=== PATIENT | female | born 1980 | race Caucasian/White ===

== ENCOUNTER 2017-07-10 11:22 | Emergency (ER) | payer MEDICAID ==
[2017-02-27 06:11] VITALS: Wt 61.2 kg
[~2017-07-10 11:22] MED LIST: ACET-1966 PO; CEPH500T7 PO; CIPR-344 PO; IBUP800T37 PO; INSU100I35 SUBQ; INSU100I5 SUBQ; NICO1PAT88 TD; OXYC-865 PO; PER PO; PREN-127 PO
[2017-07-10 11:27] VITALS: BP 133/79
--- NOTE | 2017-07-10 11:30 | ER Report ---
History and Physical Time Seen By MD: 11:30 Hx. of Stated Complaint: L lower tooth pain that started last night, unable to get into dentist til next week HPI/ROS CHIEF COMPLAINT: Tooth pain HISTORY OF PRESENT ILLNESS: 36-year-old female patient presents to emergency room with complaint of left-sided tooth pain. Patient states it started last night. She states the pain has become significant. Patient states she tried to eat a bagel this morning, however she was unable to due to the pain. Patient states that she did call and make an appointment with a dentist for next week. She states that the pain is quite significant. She denies having any fevers, chills, nausea, vomiting or diarrhea. Patient states she did take 3 extra strength Tylenol 3 over the last 12 hours. Allergies: Coded Allergies: No Known Drug Allergies (Unverified , 07/10/17) Home Meds Active Scripts Tramadol Hcl (TRAMADOL HCL) 50 Mg Tablet, 50 MG PO Q4-6H Y for PAIN, #10 TAB Prov:EFREN PATRICK 07/10/17 Amoxicillin 500 Mg Tab (AMOXICILLIN 500 MG TAB) 500 Mg Tablet, 1 TAB PO Q8H, # 30 TAB Prov:EFREN PATRICK 07/10/17 Insulin Detemir 100 UN/ML PEN (Levemir Flextouch) 100 Unit/1 Ml Insuln.pen, 15 UNIT SUBQ QHS, #1 UNIT 3 Refills Prov:COBY TRUONG MD 03/20/15 Insulin Aspart 100 Un/Ml Pen (NOVOLOG FLEXPEN) 100 Unit/1 Ml Insuln.pen, 5-10 UNIT SUBQ TIDCF, #1 VIAL 3 Refills Prov:COBY TRUONG MD 03/20/15 Discontinued Reported Medications Nicotine (NICOTINE PATCH) 1 Each Patch.td24, 1 EACH TD 02/27/17 Vits W-Ca,Fe,Fa(<1MG) ( VITAMINS) 1 Each Tablet, 1 EACH PO DAILY, TAB 01/17/17 Discontinued Scripts Oxycodone Hcl/Acetaminophen (PERCOCET 5-325 MG TABLET) 1 Each Tablet, 1-2 TAB PO Q4H Y for pain, #40 TAB 0 Refills Prov:SRAVAN DE LUNA MD 02/28/17 Ibuprofen (IBUPROFEN) 800 Mg Tablet, 1 TAB PO Q8H Y for pain, #40 TAB 0 Refills TAKE WITH FOOD EVERY 8 HOURS Prov:SRAVAN DE LUNA MD 02/28/17 Past Medical/Surgical History Patient has a past medical history of type 1 diabetes. Patient denies any pertinent surgical history. Reviewed Nurses Notes: Yes Hx Smoking: Yes Smoking Status: Current: Every Day Smoker Exposure to Second Hand Smoke?: Yes Constitutional Vital Sign - Last 24 Hours 07/10/17 11:27 Temp 98.1 Pulse 72 Resp 16 B/P (MAP) 133/79 Pulse Ox 96 Physical Exam General appearance: Alert no distress. Respiratory: Chest is non tender, lungs are clear to auscultation. Cardiac: Regular rate and rhythm. ENT: Patient has no obvious cavity to tooth #17, mildly tender to touch. Tooth # 18 is missing. There is no obvious abscess, swelling or erythema. DIFFERENTIAL DIAGNOSIS: After history and physical exam differential diagnosis was considered for toothache, dental infection, abscess. Medical Decision Making ED Course/Re-evaluation ED Course Patient was admitted to examined, history and physical were obtained. Differential diagnoses were considered. On exam tooth #17 was tender to palpation. Tooth #18 was missing. Patient did have enlarged lymph nodes. I discussed my findings with patient. We'll go ahead and start her on amoxicillin , tramadol. Patient was prescribed the tramadol was because of having some much Tylenol in a short. Time. Patient was instructed not to take any more Tylenol. Patient is to follow-up with her dentist as scheduled. She is return to emergency room if condition worsens. I discussed this with the patient who verbalized understanding and agreement with plan. Decision to Disposition Date: Jul 10, 2017 Decision to Disposition Time: 11:39 Depart Departure Latest Vital Signs Vital Signs Date Time Temp Pulse Resp B/P (MAP) Pulse Ox O2 Delivery O2 Flow Rate FiO2 07/10/17 11:27 98.1 72 16 133/79 96 Impression: Primary Impression: Toothache Condition: Improved Disposition: HOME OR SELF-CARE Referrals: COBY TRUONG MD (PCP) New Scripts Tramadol Hcl (TRAMADOL HCL) 50 Mg Tablet 50 MG PO Q4-6H Y for PAIN, #10 TAB Prov: EFREN PATRICK 07/10/17 Amoxicillin 500 Mg Tab (AMOXICILLIN 500 MG TAB) 500 Mg Tablet 1 TAB PO Q8H, #30 TAB Prov: EFREN PATRICK 07/10/17 Patient Instructions: Toothache (ED) Additional Instructions: You may take Ibuoprofen in addition to the pain medication as needed for pain. Rinse mouth with warm salt water after every meal. Eat soft foods. Follow up with your dentist as soon as possible, call to make an appointment. Return to the ER if condition worsens. EFREN PATRICK Jul 10, 2017 11:30
[2017-07-10] MEDS ORDERED: AMOX500T10 PO (11:37)
[2017-07-10] MEDS ORDERED: TRAM-420 PO (11:37)
== END 2017-07-10 11:45 | disposition home or self-care (01) ==
LOC: ER 11:26
DX: K08.89 Other specified disorders of teeth and supporting structures (principal)
CPT/HCPCS: 99282

== ENCOUNTER 2017-08-05 09:47 | Emergency (ER) | payer MEDICAID ==
[2017-02-27 06:11] VITALS: Wt 61.2 kg
[~2017-08-05 09:47] MED LIST changes: +AMOX500T10 PO; +TRAM-420 PO
[2017-08-05 09:52] VITALS: BP 134/79
--- NOTE | 2017-08-05 09:57 | ER Report ---
History and Physical Time Seen By MD: 09:57 Hx. of Stated Complaint: RIGHT KNEE PAIN THAT STARTED YESTERDAY. NO INJURY HPI/ROS CHIEF COMPLAINT: Knee pain HISTORY OF PRESENT ILLNESS: This is a 36 year old female. She had sudden onset of pain in the right knee this morning. No injury. No new activities or overuse. The knee is swollen. No history of prior knee problems. Pain with even light touch or any movement. No numbness in the leg. The knee does feel warm, but no rashes. No fever or chills. No other joint pains. No shortness of breath. No chest pain. No recent illness. Allergies: Coded Allergies: No Known Drug Allergies (Unverified , 08/05/17) Home Meds Active Scripts Hydrocodone Bit/Acetaminophen (HYDROCODON-ACETAMINOPHEN 5-325) 1 Each Tablet, 1 EACH PO Q4H Y for PAIN, #20 TAB 0 Refills Prov:CRISS BISHOP MD 08/05/17 Insulin Detemir 100 UN/ML PEN (Levemir Flextouch) 100 Unit/1 Ml Insuln.pen, 15 UNIT SUBQ QHS, #1 UNIT 3 Refills Prov:COBY TRUONG MD 03/20/15 Insulin Aspart 100 Un/Ml Pen (NOVOLOG FLEXPEN) 100 Unit/1 Ml Insuln.pen, 5-10 UNIT SUBQ TIDCF, #1 VIAL 3 Refills Prov:COBY TRUONG MD 03/20/15 Discontinued Scripts Tramadol Hcl (TRAMADOL HCL) 50 Mg Tablet, 50 MG PO Q4-6H Y for PAIN, #10 TAB Prov:EFREN PATRICK 07/10/17 Amoxicillin 500 Mg Tab (AMOXICILLIN 500 MG TAB) 500 Mg Tablet, 1 TAB PO Q8H, # 30 TAB Prov:EFREN PATRICK 07/10/17 Reviewed Nurses Notes: Yes Hx Smoking: Yes Smoking Status: Current: Every Day Smoker Exposure to Second Hand Smoke?: Yes Constitutional Vital Sign - Last 24 Hours 08/05/17 09:52 Temp 98.5 Pulse 95 Resp 18 B/P (MAP) 134/79 Pulse Ox 95 O2 Delivery Room Air Physical Exam General Appearance: The patient is alert, acute distress due to pain, tearful. Respiratory: No shortness of breath, breathing easily. Cardiac: regular rate and rhythm. Normal pulses in the right leg. Musculoskeletal: Knee has effusion, is very tender to even light touch and any movement. Guarding. Pain is diffuse, seems worse medial side. Skin: No rashes or lesions. Skin is warmer than surrounding skin. DIFFERENTIAL DIAGNOSIS: After history and physical exam differential diagnosis was considered for sudden onset of nontraumatic knee pain. Concern for inflammatory conditions causing pain like this and septic arthritis. Medical Decision Making Data Points Result Diagram: 08/05/17 1045 08/05/17 1045 Laboratory Hematology Test 08/05/17 10:45 08/05/17 11:52 Red Blood Count 4.48 M/uL (4.17-5.56) Mean Corpuscular Volume 88.2 fL (80.0-96.0) Mean Corpuscular Hemoglobin 29.6 pg (26.0-33.0) Mean Corpuscular Hemoglobin Concent 33.6 g/dL (32.0-36.0) Red Cell Distribution Width 13.7 % (11.5-14.5) Mean Platelet Volume 7.1 fL (7.2-11.1) Neutrophils (%) (Auto) 78.2 % (39.4-72.5) Lymphocytes (%) (Auto) 15.0 % (17.6-49.6) Monocytes (%) (Auto) 6.2 % (4.1-12.4) Eosinophils (%) (Auto) 0.0 % (0.4-6.7) Basophils (%) (Auto) 0.6 % (0.3-1.4) Nucleated RBC Relative Count (auto) 0.0 /100WBC Neutrophils # (Auto) 8.6 K/uL (2.0-7.4) Lymphocytes # (Auto) 1.7 K/uL (1.3-3.6) Monocytes # (Auto) 0.7 K/uL (0.3-1.0) Eosinophils # (Auto) 0.0 K/uL (0.0-0.5) Basophils # (Auto) 0.1 K/uL (0.0-0.1) Nucleated RBC Absolute Count (auto) 0.00 K/uL Peripheral Blood Smear No Y/N Erythrocyte Sedimentation Rate 18 mm/HOUR (0-20) Sodium Level 142 mmol/L (137-145) Potassium Level 3.8 mmol/L (3.5-5.0) Chloride Level 105 mmol/L (98-107) Carbon Dioxide Level 26 mmol/L (22-31) Blood Urea Nitrogen 12 mg/dl (7-18) Creatinine 0.60 mg/dl (0.52-1.04) Glomerular Filtration Rate Calc > 60.0 Random Glucose 73 mg/dl (75-110) Uric Acid 2.6 mg/dl (2.5-7.5) Calcium Level 8.9 mg/dl (8.4-10.2) Total Bilirubin 0.7 mg/dl (0.2-1.3) Aspartate Amino Transf (AST/SGOT) 23 U/L (0-35) Alanine Aminotransferase (ALT/SGPT) 24 U/L (0-56) Alkaline Phosphatase 79 U/L (0-126) C-Reactive Protein 5.4 mg/dl (<1.0) Total Protein 7.2 gm/dl (6.3-8.2) Albumin 3.9 g/dl (3.5-5.0) Human Chorionic Gonadotropin, Qual Negative (NEGATIVE) Body Fluid Type . Body Fluid Crystals None seen Chemistry Test 08/05/17 10:45 08/05/17 11:52 White Blood Count 11.0 k/uL (4.5-11.0) Red Blood Count 4.48 M/uL (4.17-5.56) Hemoglobin 13.3 g/dL (12.0-16.0) Hematocrit 39.5 % (34.0-47.0) Mean Corpuscular Volume 88.2 fL (80.0-96.0) Mean Corpuscular Hemoglobin 29.6 pg (26.0-33.0) Mean Corpuscular Hemoglobin Concent 33.6 g/dL (32.0-36.0) Red Cell Distribution Width 13.7 % (11.5-14.5) Platelet Count 360 K/uL (150-450) Mean Platelet Volume 7.1 fL (7.2-11.1) Neutrophils (%) (Auto) 78.2 % (39.4-72.5) Lymphocytes (%) (Auto) 15.0 % (17.6-49.6) Monocytes (%) (Auto) 6.2 % (4.1-12.4) Eosinophils (%) (Auto) 0.0 % (0.4-6.7) Basophils (%) (Auto) 0.6 % (0.3-1.4) Nucleated RBC Relative Count (auto) 0.0 /100WBC Neutrophils # (Auto) 8.6 K/uL (2.0-7.4) Lymphocytes # (Auto) 1.7 K/uL (1.3-3.6) Monocytes # (Auto) 0.7 K/uL (0.3-1.0) Eosinophils # (Auto) 0.0 K/uL (0.0-0.5) Basophils # (Auto) 0.1 K/uL (0.0-0.1) Nucleated RBC Absolute Count (auto) 0.00 K/uL Peripheral Blood Smear No Y/N Erythrocyte Sedimentation Rate 18 mm/HOUR (0-20) Glomerular Filtration Rate Calc > 60.0 Uric Acid 2.6 mg/dl (2.5-7.5) Calcium Level 8.9 mg/dl (8.4-10.2) Total Bilirubin 0.7 mg/dl (0.2-1.3) Aspartate Amino Transf (AST/SGOT) 23 U/L (0-35) Alanine Aminotransferase (ALT/SGPT) 24 U/L (0-56) Alkaline Phosphatase 79 U/L (0-126) C-Reactive Protein 5.4 mg/dl (<1.0) Total Protein 7.2 gm/dl (6.3-8.2) Albumin 3.9 g/dl (3.5-5.0) Human Chorionic Gonadotropin, Qual Negative (NEGATIVE) Body Fluid Type . Body Fluid Crystals None seen Microbiology Microbiology Date/Time Source Procedure Growth Status 08/05/17 11:52 Knee Fluid Right Gram Stain - Final Resulted 08/05/17 11:52 Knee Fluid Right Body Fluid Culture Pending Resulted EKG/Imaging Imaging Exam type: KNEE 4 VIEW RIGHT History: Knee pain, no known injury Comparison: None. Findings: There is no evidence of acute fracture, dislocation or significant arthritic change involving the right knee. No lytic or blastic bone lesion is seen. There is mild soft tissue fullness in the suprapatellar bursa likely related to small joint effusion. IMPRESSION: 1. Probable small right knee joint effusion Report Dictated By: Angie Francisco MD at 08/05/2017 11:35 AM ED Course/Re-evaluation ED Course Initially tried to start an IV, but nursing was unable. The patient asked them to stop. Changed orders to lab draw and IM injection of Fentanyl 50mcg. The patient had normal white count. CRP was elevated. Metabolic panel and ESR otherwise negative. Patient had a second IM injection of Fentanyl 50mcg for pain. Right knee arthrocentesis was done. Negative crystal study and negative gram stain. Culture pending. Called the patient with these results as she had left prior to them being available. Patient had some pain relief with the injection of the lidocaine and Depo-Medrol 40mg intra-articular after the arthrocentesis. Procedure: Arthrocentesis. After verbal informed consent from patient explaining the risks including infection and bleeding a arthrocentesis was performed on the knee. The arthrocentesis was performed after the patient was prepped and the no-touch technique was used. The joint was anesthetized with 1% lidocaine. Approximately 35 cc of straw-colored clear fluid was obtained. There were no complications. Injected 5cc of lidocaine and 1cc of 40mg Depo-Medrol after verifying that fluid did not appear infected. Fluid sent to lab for further analysis The procedure was performed by [myself.] Decision to Disposition Date: Aug 05, 2017 Decision to Disposition Time: 12:11 Depart Departure Latest Vital Signs Vital Signs Date Time Temp Pulse Resp B/P (MAP) Pulse Ox O2 Delivery O2 Flow Rate FiO2 08/05/17 09:52 98.5 95 18 134/79 95 Room Air Impression: Primary Impression: Knee pain, acute Condition: Improved Disposition: HOME OR SELF-CARE Referrals: COBY TRUONG MD (PCP) New Scripts Hydrocodone Bit/Acetaminophen (HYDROCODON-ACETAMINOPHEN 5-325) 1 Each Tablet 1 EACH PO Q4H Y for PAIN, #20 TAB 0 Refills Prov: CRISS BISHOP MD 08/05/17 Patient Instructions: Knee Pain (ED) Additional Instructions: Ibuprofen 200mg over the counter tablets, take 4 tablets three times a day with food. Lortab 5/325, one every 4 hours as needed for pain. Apply ice 20 minutes every 1-2 hours while awake. An MADISYN wrap can be used for compression to help reduce swelling. Rest the injured area, keep it elevated while at rest. Begin gentle range of motion exercises. You will want to make an appointment to get established with a primary care provider to follow your diabetes. Please call and make an appointment with orthopedic surgery for further workup and treatment of your knee pain. You can call [facility] today to make an appointment. Problem Qualifiers Primary Impression: Knee pain, acute Laterality: right Qualified Codes: M25.561 - Pain in right knee [facility] Aug 05, 2017 09:57
[2017-08-05] MEDS ORDERED: fentaNYL CITR 100 MCG/2 ML AMP IVP ONE (10:05)
[2017-08-05] MEDS ORDERED: fentaNYL CITR 100 MCG/2 ML AMP IM ONE ×2 (10:25→11:15)
[2017-08-05 10:53] LABS: PLATELET COUNT, AUTOMATED 360 K/uL (150-450)
[2017-08-05] MEDS ORDERED: methylPREDNIS ACE 40MG/ML VIAL INJ ONE (11:30)
--- NOTE | 2017-08-05 11:41 | RADIOLOGY IMAGING REPORT ---
FACILITY: [facility] PATIENT NAME: Dora Anderson : 1980 MR: [id number] V: [id number] EXAM DATE: [id number] ORDERING PHYSICIAN: CRISS BISHOP TECHNOLOGIST: [place] [facility] [place]: Dora Anderson : 1980 Visit/Account:[id number] Date of Sevice: 08/05/2017 Exam type: KNEE 4 VIEW RIGHT History: Knee pain, no known injury Comparison: None. Findings: There is no evidence of acute fracture, dislocation or significant arthritic change involving the rig ht knee. No lytic or blastic bone lesion is seen. There is mild soft tissue fullness in the suprapa tellar bursa likely related to small joint effusion. IMPRESSION: 1. Probable small right knee joint effusion Report Dictated By: Angie Francisco MD at 08/05/2017 11:35 AM Report E-Signed By: Angie Francisco MD at 08/05/2017 11:37 AM WSN:[email or web address]
[2017-08-05] MEDS ORDERED: APAP/HYDROCODONE 325/5 TAB PO ONE (12:00)
[2017-08-05] MEDS ORDERED: LOR5/325 PO (12:13)
== END 2017-08-05 12:45 | disposition home or self-care (01) ==
LOC: ER 09:48
DX: M25.561 Pain in right knee (principal)
CPT/HCPCS: 20610; 73564; 84550; 84703; 85025; 85651; 86140; 87071; 87205; 89050; 89060; 96372; 99284; J1030; J3010; 82040; 82247; 82310; 82374; 82435; 82565; 82947; 84075; 84132; 84155; 84295; 84450; 84460; 84520; 87077; 87186

== ENCOUNTER 2017-08-24 10:05 | Emergency (ER) | payer MEDICAID ==
[2017-02-27 06:11] VITALS: Wt 61.2 kg
[~2017-08-24 10:05] MED LIST changes: +LOR5/325 PO
[2017-08-24 10:10] VITALS: BP 115/56
--- NOTE | 2017-08-24 11:11 | ER Report ---
History and Physical Time Seen By MD: 11:11 Hx. of Stated Complaint: fluid removed from right knee a couple weeks ago. has an infection in the knee she's been taking antibiotics for. woke up today and couldn't walk again HPI/ROS CHIEF COMPLAINT: Right knee pain HISTORY OF PRESENT ILLNESS: 36-year-old female patient presents to emergency room with complaint of right knee pain. Patient states that she has been having knee pain since . She states this got worse today and today she is not able to bear weight. Patient states that she has seen orthopedist for this at the beginning of the month. She also states that she was seen proximal to 3 weeks ago here in the emergency room. She states they did tap her knee at that time, and found staph aureus in the joint. They did start her on antibiotics. She states that when the pain started coming back she did start taking Bactrim. She states those same thing they've given her here in the emergency room. She states she is post given MRI done, however she opted not to do that as she had had the positive culture at that time. Patient denies having any fevers at this time. She states that the pain is unbearable. She denies any nausea, vomiting or diarrhea. States she is eating and drinking without any difficulties. REVIEW OF SYSTEMS: Respiratory: No cough, no dyspnea. Cardiovascular: No chest pain, no palpitations. Gastrointestinal: No vomiting, no abdominal pain. Musculoskeletal: As noted above Allergies: Coded Allergies: No Known Drug Allergies (Unverified , 08/24/17) Home Meds Active Scripts Insulin Detemir 100 UN/ML PEN (Levemir Flextouch) 100 Unit/1 Ml Insuln.pen, 15 UNIT SUBQ QHS, #1 UNIT 3 Refills Prov:COBY TRUONG MD 03/20/15 Insulin Aspart 100 Un/Ml Pen (NOVOLOG FLEXPEN) 100 Unit/1 Ml Insuln.pen, 5-10 UNIT SUBQ TIDCF, #1 VIAL 3 Refills Prov:COBY TRUONG MD 03/20/15 Discontinued Scripts Hydrocodone Bit/Acetaminophen (HYDROCODON-ACETAMINOPHEN 5-325) 1 Each Tablet, 1 EACH PO Q4H Y for PAIN, #20 TAB 0 Refills Prov:CRISS BISHOP MD 08/05/17 Past Medical/Surgical History Patient has a past medical history of diabetes, takes Depo-Provera for control. Patient has surgical history of section. Reviewed Nurses Notes: Yes Hx Smoking: Yes Smoking Status: Current: Every Day Smoker Exposure to Second Hand Smoke?: Yes Constitutional Vital Sign - Last 24 Hours 08/24/17 10:10 Temp 97.5 Pulse 108 Resp 16 B/P (MAP) 115/56 Pulse Ox 99 O2 Delivery Room Air Intake and Output 08/24/17 08/24/17 08/25/17 15:00 23:00 07:00 Intake Total 100 ml Balance 100 ml Physical Exam General Appearance: The patient is alert, has no immediate need for airway protection and no current signs of toxicity. Respiratory: Chest is non tender, lungs are clear to auscultation. Cardiac: regular rate and rhythm Gastrointestinal: Abdomen is soft and non tender, no masses, bowel sounds normal. Musculoskeletal: Neck: Neck is supple and non tender. Extremities have full range of motion and are non tender. The right knee is erythematous, swollen. It is warm to the touch. Tenderness seems to be located more around the patella. Skin: No rashes or lesions. DIFFERENTIAL DIAGNOSIS: After history and physical exam differential diagnosis was considered for septic joint, infection, inflammation. Medical Decision Making Data Points Result Diagram: 08/24/17 1050 08/24/17 1050 Laboratory Hematology Test 08/24/17 10:50 08/24/17 12:46 Red Blood Count 4.56 M/uL (4.17-5.56) Mean Corpuscular Volume 87.8 fL (80.0-96.0) Mean Corpuscular Hemoglobin 30.1 pg (26.0-33.0) Mean Corpuscular Hemoglobin Concent 34.3 g/dL (32.0-36.0) Red Cell Distribution Width 13.7 % (11.5-14.5) Mean Platelet Volume 7.4 fL (7.2-11.1) Neutrophils (%) (Auto) 67.4 % (39.4-72.5) Lymphocytes (%) (Auto) 25.3 % (17.6-49.6) Monocytes (%) (Auto) 7.0 % (4.1-12.4) Eosinophils (%) (Auto) 0.1 % (0.4-6.7) Basophils (%) (Auto) 0.2 % (0.3-1.4) Nucleated RBC Relative Count (auto) 0.0 /100WBC Neutrophils # (Auto) 6.6 K/uL (2.0-7.4) Lymphocytes # (Auto) 2.5 K/uL (1.3-3.6) Monocytes # (Auto) 0.7 K/uL (0.3-1.0) Eosinophils # (Auto) 0.0 K/uL (0.0-0.5) Basophils # (Auto) 0.0 K/uL (0.0-0.1) Nucleated RBC Absolute Count (auto) 0.00 K/uL Peripheral Blood Smear Yes Y/N Sodium Level 137 mmol/L (137-145) Potassium Level 4.2 mmol/L (3.5-5.0) Chloride Level 100 mmol/L (98-107) Carbon Dioxide Level 24 mmol/L (22-31) Blood Urea Nitrogen 9 mg/dl (7-18) Creatinine 0.70 mg/dl (0.52-1.04) Glomerular Filtration Rate Calc > 60.0 Random Glucose 78 mg/dl (75-110) Calcium Level 9.5 mg/dl (8.4-10.2) Total Bilirubin 0.6 mg/dl (0.2-1.3) Aspartate Amino Transf (AST/SGOT) 29 U/L (0-35) Alanine Aminotransferase (ALT/SGPT) 27 U/L (0-56) Alkaline Phosphatase 81 U/L (0-126) C-Reactive Protein 16.7 mg/dl (<1.0) Total Protein 6.9 gm/dl (6.3-8.2) Albumin 3.8 g/dl (3.5-5.0) Body Fluid Type knee fluid Body Fluid WBC 72297 Body Fluid RBC 1975 Body Fluid Neutrophils 93 % Body Fluid Lymphocytes 4 % Body Fluid Monocytes 3 % Body Fluid Eosinophils 0 % Body Fluid Basophils 0 % Body Fluid Crystals None Body Fluid Glucose 59 mg/dl Body Fluid Total Protein 3.5 G/dl Chemistry Test 08/24/17 10:50 08/24/17 12:46 White Blood Count 9.8 k/uL (4.5-11.0) Red Blood Count 4.56 M/uL (4.17-5.56) Hemoglobin 13.7 g/dL (12.0-16.0) Hematocrit 40.0 % (34.0-47.0) Mean Corpuscular Volume 87.8 fL (80.0-96.0) Mean Corpuscular Hemoglobin 30.1 pg (26.0-33.0) Mean Corpuscular Hemoglobin Concent 34.3 g/dL (32.0-36.0) Red Cell Distribution Width 13.7 % (11.5-14.5) Platelet Count 274 K/uL (150-450) Mean Platelet Volume 7.4 fL (7.2-11.1) Neutrophils (%) (Auto) 67.4 % (39.4-72.5) Lymphocytes (%) (Auto) 25.3 % (17.6-49.6) Monocytes (%) (Auto) 7.0 % (4.1-12.4) Eosinophils (%) (Auto) 0.1 % (0.4-6.7) Basophils (%) (Auto) 0.2 % (0.3-1.4) Nucleated RBC Relative Count (auto) 0.0 /100WBC Neutrophils # (Auto) 6.6 K/uL (2.0-7.4) Lymphocytes # (Auto) 2.5 K/uL (1.3-3.6) Monocytes # (Auto) 0.7 K/uL (0.3-1.0) Eosinophils # (Auto) 0.0 K/uL (0.0-0.5) Basophils # (Auto) 0.0 K/uL (0.0-0.1) Nucleated RBC Absolute Count (auto) 0.00 K/uL Peripheral Blood Smear Yes Y/N Glomerular Filtration Rate Calc > 60.0 Calcium Level 9.5 mg/dl (8.4-10.2) Total Bilirubin 0.6 mg/dl (0.2-1.3) Aspartate Amino Transf (AST/SGOT) 29 U/L (0-35) Alanine Aminotransferase (ALT/SGPT) 27 U/L (0-56) Alkaline Phosphatase 81 U/L (0-126) C-Reactive Protein 16.7 mg/dl (<1.0) Total Protein 6.9 gm/dl (6.3-8.2) Albumin 3.8 g/dl (3.5-5.0) Body Fluid Type knee fluid Body Fluid WBC 85279 Body Fluid RBC 1975 Body Fluid Neutrophils 93 % Body Fluid Lymphocytes 4 % Body Fluid Monocytes 3 % Body Fluid Eosinophils 0 % Body Fluid Basophils 0 % Body Fluid Crystals None Body Fluid Glucose 59 mg/dl Body Fluid Total Protein 3.5 G/dl Microbiology Microbiology Date/Time Source Procedure Growth Status 08/24/17 12:46 Knee Fluid Right Gram Stain - Final Resulted 08/24/17 12:46 Knee Fluid Right Body Fluid Culture Pending Resulted 08/24/17 12:46 Knee Fluid Right Anaerobic Culture Pending Resulted EKG/Imaging Imaging EXAMINATION: Right knee 4 views HISTORY: Knee pain. Swelling. COMPARISON: 08/05/2017. FINDINGS: Bones of the right knee demonstrate normal alignment. No evidence of fracture or dislocation. Joint spaces are preserved. Normal mineralization. Moderate right knee joint effusion distending the suprapatellar bursa. IMPRESSION: 1. No acute osseous findings at the right knee. 2. Right knee joint effusion. Report Dictated By: Noel Turner MD at 08/24/2017 12:17 PM Report E-Signed By: Noel Turner MD at 08/24/2017 12:18 PM ED Course/Re-evaluation ED Course Patient was administered exam room, history and physical were obtained. Differential diagnoses were considered. On examination the patient has swelling and pain to the right knee. The knee is warm to the touch. A CBC, CMP, CRP were done. An x-ray was done to see if there is any osteomyelitis. White count was negative, CMP was normal, CRP was elevated at 16.7. X-ray showed no acute findings. I did discuss the case with Dr. Riley, orthopedist, he did recommend that we go ahead and perform an arthrocentesis. He states that he will come in and evaluate the patient. I was able to get an arthrocentesis done , we pulled out 35 cc of straw-colored fluid. That was sent to the lab. I was done as described below. Dr. Riley did come and evaluate the patient. He felt this was more likely a cellulitis. He recommended IV antibiotics with admission. Patient refused admission stating that she had to be home to help take care of her child. As result of that we did get the patient set up with special procedures to receive a gram of Rocephin daily for the next 4 days. She is to follow-up with Dr. Lux on Saturday. I discussed this with the patient who verbalized understanding and agreement with plan. Procedure: Arthrocentesis. After verbal informed consent from patient explaining the risks including infection and bleeding a arthrocentesis was performed on the knee. The arthrocentesis was performed after the patient was prepped and draped in the usual fashion. The joint was anesthetized with 1% lidocaine. Approximately 35cc of straw-colored fluid was obtained. There were no complications. The procedure was performed by myself under the direct supervision of Dr. Kilpatrick. Decision to Disposition Date: August 24, 2017 Decision to Disposition Time: 14:05 Depart Departure Latest Vital Signs Vital Signs Date Time Temp Pulse Resp B/P (MAP) Pulse Ox O2 Delivery O2 Flow Rate FiO2 08/24/17 10:10 97.5 108 16 115/56 99 Room Air Impression: Primary Impression: Knee pain, acute Additional Impression: Cellulitis Condition: Improved Disposition: HOME OR SELF-CARE Referrals: COBY TRUONG MD (PCP) Patient Instructions: Cellulitis (ED) Additional Instructions: Limit activity by pain. Get plenty of rest. Follow up with Dr. Lux at [facility] on Saturday, call Saturday to make an appointment. Return to the ER if condition worsens. Elevate leg when not active. Follow up with Special Procedures tomorrow at 1:00pm to get your next dose of IV antibiotics. Problem Qualifiers Primary Impression: Knee pain, acute Laterality: right Qualified Codes: M25.561 - Pain in right knee Additional Impression: Cellulitis Site of cellulitis: extremity Site of cellulitis of extremity: lower extremity Laterality: right Qualified Codes: L03.115 - Cellulitis of right lower limb EFREN PATRICK August 24, 2017 11:11
[2017-08-24 11:20] LABS: PLATELET COUNT, AUTOMATED 274 K/uL (150-450)
--- NOTE | 2017-08-24 12:22 | RADIOLOGY IMAGING REPORT ---
[place] [facility] [place] NAME[place] Dora Anderson : 1980 MR: [id number] V: [id number] EXAM DATE: ORDERING PHYSICIAN: EFREN PATRICK TECHNOLOGIST: [place] [facility] [place] Patient: Dora Anderson : 1980 Visit/Account:[id number] Date of Sevice: 08/24/2017 EXAMINATION: Right knee 4 views HISTORY: Knee pain. Swelling. COMPARISON: 08/05/2017. FINDINGS: Bones of the right knee demonstrate normal alignment. No evidence of fracture or dislocation. Joint s paces are preserved. Normal mineralization. Moderate right knee joint effusion distending the suprapatellar bursa. IMPRESSION: 1. No acute osseous findings at the right knee. 2. Right knee joint effusion. Report Dictated By: Noel Turner MD at 08/24/2017 12:17 PM Report E-Signed By: Noel Turner MD at 08/24/2017 12:18 PM WSN:[id number]
[2017-08-24] MEDS ORDERED: cefTRIAXone(*) 1 GM VIAL 1 GM in NS(*) 0.9% 100 ML ADDVANT BAG 100 ML IVPB ONE (13:35)
== END 2017-08-24 14:46 | disposition home or self-care (01) ==
LOC: ER 10:14
DX: L03.115 Cellulitis of right lower limb (principal); F17.210 Nicotine dependence, cigarettes, uncomplicated
CPT/HCPCS: 20610; 73564; 82945; 84157; 85025; 86140; 87071; 87073; 87205; 89050; 89060; 99283; J0696; J7050; 82040; 82247; 82310; 82374; 82435; 82565; 82947; 84075; 84132; 84155; 84295; 84450; 84460; 84520

== ENCOUNTER 2017-08-26 13:43 | Emergency (ER) | payer MEDICAID ==
[2017-02-27 06:11] VITALS: Wt 61.2 kg
[2017-08-26 13:47] VITALS: BP 135/75
--- NOTE | 2017-08-26 13:51 | ER Report ---
History and Physical Time Seen By MD: 13:50 Hx. of Stated Complaint: PT HAS R KNEE PAIN, PAST INFECTION WITH ANTIBIOTICS, NO RELIEF OF PAIN, SAID NEEDS SURGERY HPI/ROS CHIEF COMPLAINT: Right knee swelling, right knee pain HISTORY OF PRESENT ILLNESS: 36-year-old female patient presents to emergency room with complaint of right knee swelling and right knee pain. Patient was seen on Saturday with same complaint. At that time an x-ray, a CBC, CMP, CRP, arthrocentesis of the knee were done. White count was 10,000, CMP was unremarkable, CRP was 16.7. The fluid from the knee showed 16,000 white cells per high-power field. Patient was evaluated by Dr. Riley as well. His recommendation was for admission with IV antibiotics over 24. He states that he would reevaluate at that time. When that occurred he would decide if she needs to have the joint cleaned out or discharge. Patient states she was unable stay and ultimately was discharged with plan made for her to follow-up with specialist procedures. Patient did not follow-up with special procedures. She states she was unable to get a ride yesterday and has not called to make an appointment with Dr. Lux as of this time today. She states the pain has become unbearable and feels that something needs to be done. REVIEW OF SYSTEMS: Respiratory: No cough, no dyspnea. Cardiovascular: No chest pain, no palpitations. Gastrointestinal: No vomiting, no abdominal pain. Musculoskeletal: As noted above Allergies: Coded Allergies: No Known Drug Allergies (Unverified , 08/24/17) Home Meds Active Scripts Insulin Detemir 100 UN/ML PEN (Levemir Flextouch) 100 Unit/1 Ml Insuln.pen, 15 UNIT SUBQ QHS, #1 UNIT 3 Refills Prov:COBY TRUONG MD 03/20/15 Insulin Aspart 100 Un/Ml Pen (NOVOLOG FLEXPEN) 100 Unit/1 Ml Insuln.pen, 5-10 UNIT SUBQ TIDCF, #1 VIAL 3 Refills Prov:COBY TRUONG MD 03/20/15 Reported Medications Venlafaxine Hcl (EFFEXOR XR) 150 Mg Cap.er.24h, 150 MG PO QDAY 08/26/17 Discontinued Scripts Hydrocodone Bit/Acetaminophen (HYDROCODON-ACETAMINOPHEN 5-325) 1 Each Tablet, 1 EACH PO Q4H Y for PAIN, #20 TAB 0 Refills Prov:DARIOCRISS Chin MD 08/05/17 Past Medical/Surgical History Patient has a past medical history of right knee pain, diabetes, Depo-Provera injection. Patient has no pertinent surgical history. Reviewed Nurses Notes: Yes Hx Smoking: Yes Smoking Status: Current: Every Day Smoker Exposure to Second Hand Smoke?: Yes Constitutional Vital Sign - Last 24 Hours 08/26/17 13:47 Temp 98.9 Pulse 110 Resp 16 B/P (MAP) 135/75 Pulse Ox 94 Physical Exam General Appearance: The patient is alert, has no immediate need for airway protection and no current signs of toxicity. Respiratory: Chest is non tender, lungs are clear to auscultation. Cardiac: regular rate and rhythm Gastrointestinal: Abdomen is soft and non tender, no masses, bowel sounds normal. Musculoskeletal: Neck: Neck is supple and non tender. Extremities have full range of motion and are non tender. Right knee is swollen, warm to the touch, there is some mild erythema, however does seem improved when compared with Saturday. Skin: No rashes or lesions. DIFFERENTIAL DIAGNOSIS: After history and physical exam differential diagnosis was considered for cellulitis, septic joint, inflammatory disease of the joint. Medical Decision Making ED Course/Re-evaluation ED Course Patient was admitted and examined, history and physical were obtained. Differential diagnoses were considered. On examination patient had swelling and pain to the right knee. It was slightly warm to the touch. I discussed with patient that we will need to recheck labs and at that time I would talk with orthopedics. I left him that everything ordered. Shortly after that the patient was seen walking out of the department. Patient did not have an IV placed, they did try but were unsuccessful. Beth Calderon, director of the emergency room, went out and talked with the patient. She was able to get her back in the room. Before I was able to get him talk with patient patient was then seen walking down the [address] saying that she was sick this place and wanted to leave. I was unable to ascertain what the patient's concern was, as she had left before I was able to talk with her about why she was leaving. Decision to Disposition Date: August 26, 2017 Decision to Disposition Time: 15:00 Depart Departure Latest Vital Signs Vital Signs Date Time Temp Pulse Resp B/P (MAP) Pulse Ox O2 Delivery O2 Flow Rate FiO2 08/26/17 13:47 98.9 110 16 135/75 94 Impression: Primary Impression: Knee pain, acute Condition: Condition Unchanged Disposition: AGAINST MED ADV / DISCONT CARE Referrals: COBY TRUONG MD (PCP) Problem Qualifiers Primary Impression: Knee pain, acute Laterality: right Qualified Codes: M25.561 - Pain in right knee EFREN PATRICK August 26, 2017 13:51
[2017-08-26] MEDS ORDERED: VENL150C61 PO (13:52)
[2017-08-26] MEDS ORDERED: cefTRIAXone 1 GM VIAL IVP ONE (14:05)
== END 2017-08-26 15:00 | disposition home or self-care (01) ==
LOC: ER 13:59
DX: M25.561 Pain in right knee (principal)
CPT/HCPCS: 99283

== ENCOUNTER → 2017-08-27 | Outpatient (CLI) | payer MEDICAID ==
[2017-02-27 06:11] VITALS: BMI 24.0
[~2017-08-27] MED LIST changes: +CEPH-13 PO; +NAPR500T31 PO; +VENL150C61 PO
== END ==
LOC: LAB 16:02
PROVIDERS: ATTEND Nurse Practitioner Primary Care
DX: M00.9 Pyogenic arthritis, unspecified (principal)
CPT/HCPCS: 36415; 80305; 82040; 82247; 82310; 82374; 82435; 82565; 82947; 84075; 84132; 84155; 84295; 84450; 84460; 84520; 86140

== ENCOUNTER → 2017-08-28 | Outpatient (CLI) | payer MEDICAID ==
[2017-02-27 06:11] VITALS: BMI 24.0
[~2017-08-28] MED LIST changes: +GADOBENATE 529MG/1ML 15ML VIAL IVP ONE; +LIDOCAINE/SOD BICARB 8.4% SYR ID ONE
--- NOTE | 2017-08-28 15:15 | RADIOLOGY IMAGING REPORT ---
FACILITY: [facility] PATIENT NAME: Dora Anderson : 1980 MR: [id number] V: [id number] EXAM DATE: ORDERING PHYSICIAN: CARMELINA NOWAK TECHNOLOG[place]: [place] [facility] [place] : 1980 Visit/Account:[id number] Date of Sevice: 08/28/2017 MRI right knee with and without contrast Indication: Knee pain. Infection. Comparison: Recent plain films August 24, 2017 are reviewed. Technique: Sagittal proton density fat-saturated, sagittal T1-weighted fat saturated postcontrast, co marianela T1-weighted, T2-weighted fat-saturated, T1-weighted fat-saturated postcontrast, axial STIR, T1- weighted fat saturated pre-and postcontrast images obtained to the right knee before and after admini stration of 13 ml IV MultiHance contrast. Findings: There is an intermediate joint effusion identified. This is seen to extend into a popliteal cyst. E meng extends above and below the popliteal cyst suggesting recent partial rupture into the soft tissu es. Following the administration of gadolinium, there is diffuse synovial enhancement, an expected f inding. There is expected enhancement of the margins of the popliteal cyst. No evidence to suggest joint centered erosion. No marrow enhancement to suggest osteomyelitis. Culmination of findings are compatible with a nonspecific synovitis. If there is continued clinical concern for infection, need le aspiration and fluid analysis is necessary. In addition to this synovial enhancement, there is en hancement of the soft tissues surrounding the knee joint. Nonspecific enhancement involves the media l gastrocnemius muscle adjacent to the suspected partially ruptured popliteal cyst. This examination is not optimized for evaluation of the menisci. No definitive medial or lateral men iscal tear seen. The cruciate ligaments are intact. Proximal third of the medial collateral ligamen t appears mildly thickened which may be sequela of an old injury. Lateral collateral ligament comple x appears intact. The extensor mechanism is maintained. IMPRESSION: 1. Intermediate right knee joint effusion with diffuse synovial enhancement and with surrounding sof t tissue enhancement. Findings are compatible with an underlying, nonspecific synovitis at the right knee. Differential would include inflammatory arthropathies and or septic arthritis. If there is c ontinued clinical concern for infection, needle aspiration of the joint space and fluid analysis is n ecessary for further workup. 2. Popliteal cyst with findings suggesting recent partial rupture into the surrounding soft tissues. 3. Nonspecific medial gastrocnemius muscle edema/myositis. This may be related to the popliteal cys t rupture. This could also be reactive myositis in the setting of joint centered infection. Differe ntial would also include a myotendinous strain. 4. No evidence of internal derangement of the knee on this limited exam. Report Dictated By: Agustín Clifton at 08/28/2017 3:00 PM Report E-Signed By: Agustín Clifton at 08/28/2017 3:11 PM WSN:[email or web address]
== END ==
LOC: MRI 06:20
PROVIDERS: ATTEND Nurse Practitioner Primary Care
DX: M25.461 Effusion, right knee (principal); M65.88 Other synovitis and tenosynovitis, other site; M71.21 Synovial cyst of popliteal space [Baker], right knee
CPT/HCPCS: 73723; A9577

== ENCOUNTER → 2017-08-28 | Outpatient (CLI) | payer MEDICAID ==
[2017-02-27 06:11] VITALS: BMI 24.0
[~2017-08-28] MED LIST changes: -GADOBENATE 529MG/1ML 15ML VIAL IVP ONE; -LIDOCAINE/SOD BICARB 8.4% SYR ID ONE
== END ==
LOC: LAB 13:23
PROVIDERS: ATTEND Nurse Practitioner Primary Care
DX: Z02.9 Encounter for administrative examinations, unspecified (principal)

== ENCOUNTER 2018-01-05 11:42 | Observation (INO) | payer MEDICAID ==
[2017-02-27 06:11] VITALS: Ht 172.7 cm; Wt 61.7 kg
[~2018-01-05] VITALS: Ht 172.7 cm; Wt 61.7 kg
[~2018-01-05 11:42] MED LIST changes: -ALPR-429 PO; -INSU100V24 SQ; -MEDR150D IM; -MULT-1379 PO; -NIC10R INH; -NICOTROL INHALER PO; -TRAZ100T31 PO; -VALA500T66 PO
[2018-01-05] MEDS ORDERED: DEXTROSE 50% 50 ML SYR IVP ONE ×2 (11:55→14:40)
[2018-01-05] MEDS ORDERED: D5NS 500 ML BAG 500 ML IV PRN (12:00)
--- NOTE | 2018-01-05 12:07 | ER Report ---
History and Physical Time Seen By MD: 11:47 Hx. of Stated Complaint: HYPOGLYCEMIC, NOT COOPERATIVE AND NOT ALERT HPI/ROS CHIEF COMPLAINT: Hypoglycemia HISTORY OF PRESENT ILLNESS: 37-year-old female patient presents to emergency room with complaint of hypoglycemia. Patient was brought in by EMS. They state that they received a call that she was not waking up. They went into find her. They checked her blood sugar and their glucometer read low. At that time they did try to get an IV, however they were unable to. They did in up giving her some oral glucagon. They state that they recheck her blood sugar in route to the hospital and again her blood sugar read low. On arrival to the emergency room patient was unable to talk. However we did get a call from her [id number] a few minutes after she got here. She stated that she is concerned that the patient may have taken too much of her Xanax. She informed us that she had received a bottle of 60 tablets of 0.5 mg Xanax. She states there is only 6 left in the bottle. When the patient had received glucagon and was able to talk with us patient said that she had dropped her Xanax into the toilet. A few minutes after that she stated that she had dropped and into her purse. Patient denies suicidality. Patient states she feels weak. REVIEW OF SYSTEMS: Respiratory: Patient does have cough Cardiovascular: No chest pain, no palpitations. Gastrointestinal: No vomiting, no abdominal pain. Musculoskeletal: No back pain. Allergies: Coded Allergies: No Known Drug Allergies (Unverified , 08/24/17) Home Meds Active Scripts Insulin Detemir 100 UN/ML PEN (Levemir Flextouch) 100 Unit/1 Ml Insuln.pen, 15 UNIT SUBQ QHS, #1 UNIT 3 Refills Prov:COBY TRUONG MD 03/20/15 Insulin Aspart 100 Un/Ml Pen (NOVOLOG FLEXPEN) 100 Unit/1 Ml Insuln.pen, 5-10 UNIT SUBQ TIDCF, #1 VIAL 3 Refills Prov:COBY TRUONG MD 03/20/15 Reported Medications Alprazolam (XANAX) 0.5 Mg Tablet, 1 TAB PO TID, TAB 01/05/18 Venlafaxine Hcl (EFFEXOR XR) 150 Mg Cap.er.24h, 150 MG PO QDAY 08/26/17 Discontinued Scripts Naproxen (NAPROXEN) 500 Mg Tablet, 1 TAB PO BID PRN for PAIN, #20 TAB 0 Refills Prov:CARMELINA NOWAK DNP, CHILDREN'S CHOIR DIRECTOR-BC 08/28/17 Cephalexin (KEFLEX) 500 Mg Capsule, 1 TAB PO QID, #40 CAP 0 Refills Prov:CARMELINA NOWAK LUIS, CHILDREN'S CHOIR DIRECTOR-BC 08/28/17 Past Medical/Surgical History Patient has a past medical history of diabetes, infection right knee. Patient denies any pertinent surgical history. Reviewed Nurses Notes: Yes Hx Smoking: Yes Smoking Status: Current: Every Day Smoker Exposure to Second Hand Smoke?: Yes (1/2 pack per day for 20 years) Constitutional Vital Sign - Last 24 Hours 01/05/18 01/05/18 01/05/18 01/05/18 11:42 11:43 11:45 11:57 Pulse ??? 66 50 Resp 10 B/P (MAP) 115/89 115/89 (98) Pulse Ox 100 100 O2 Delivery Non-Rebreather 01/05/18 01/05/18 01/05/18 01/05/18 12:00 12:12 12:15 12:27 Pulse 58 60 B/P (MAP) 116/82 (93) 108/95 (99) Pulse Ox 100 100 01/05/18 01/05/18 01/05/18 01/05/18 12:30 12:42 12:45 12:57 Pulse 64 ??? B/P (MAP) 96/87 (90) 127/93 (104) Pulse Ox 100 01/05/18 01/05/18 01/05/18 01/05/18 13:00 13:12 13:27 13:30 Pulse ? B/P (MAP) ???/??? (1665) ???/??? (166) 01/05/18 01/05/18 01/05/18 01/05/18 13:35 13:45 13:50 14:00 Pulse ? B/P (MAP) ???/??? (1665) ???/??? (166) 01/05/18 01/05/18 01/05/18 01/05/18 14:05 14:20 14:35 14:47 Pulse ? B/P (MAP) 104/55 (71) 01/05/18 01/05/18 01/05/18 01/05/18 14:50 15:05 15:12 15:18 Temp 97.0 Pulse 65 55 Resp 18 19 B/P (MAP) 94/63 (73) Pulse Ox 97 98 01/05/18 01/05/18 15:20 16:34 Temp 97.8 Pulse 65 Resp 10 Pulse Ox 99 Physical Exam General Appearance: Patient on initial exam was somnolent, difficult to arouse. After her blood sugar came up she was talkative, she was not cooperative. Respiratory: Chest is non tender, lungs are coarse to auscultation. Cardiac: regular rate and rhythm Gastrointestinal: Abdomen is soft and non tender, no masses, bowel sounds normal. Musculoskeletal: Neck: Neck is supple and non tender. Extremities have full range of motion and are non tender. Skin: No rashes or lesions. Psych: Patient does have slightly slurred speech, she is angry, she is yelling. Patient does have a hard time maintaining eye contact. DIFFERENTIAL DIAGNOSIS: After history and physical exam differential diagnosis was considered for drug overdose, hypoglycemia, self harming behavior. Medical Decision Making Data Points Result Diagram: 01/05/18 1455 01/05/18 1455 Laboratory Hematology Test 01/05/18 13:12 01/05/18 14:55 Urine Color Yellow Urine Clarity Slightly-cloudy Urine pH 6.0 pH (4.8-9.5) Urine Specific [place] 1.014 Urine Protein Negative mg/dL (NEGATIVE) Urine Glucose (UA) 50 mg/dL (NEGATIVE) Urine Ketones Negative mg/dL (NEGATIVE) Urine Blood Negative (NEGATIVE) Urine Nitrite Negative (NEGATIVE) Urine Bilirubin Negative (NEGATIVE) Urine Urobilinogen Negative mg/dL (0.2-1.9) Urine Leukocyte Esterase Trace (NEGATIVE) Urine RBC 2 /HPF (0-2/HPF) Urine WBC 23 /HPF (0-5/HPF) Urine Squamous Epithelial Cells Many /LPF (</=FEW) Urine Bacteria Few /HPF (NONE-FEW) Urine Mucus None /HPF (NONE-FEW) Urine HCG, Qualitative Negative (NEGATIVE) Urine Opiates Screen Negative Urine Barbiturates Screen Negative Ur Tricyclic Antidepressants Screen Negative Urine Phencyclidine Screen Negative Urine Amphetamines Screen Negative Urine Benzodiazepines Screen Positive Urine Cocaine Screen Negative Urine Cannabinoids Screen Positive Red Blood Count 4.40 M/uL (4.17-5.56) Mean Corpuscular Volume 87.2 fL (80.0-96.0) Mean Corpuscular Hemoglobin 28.8 pg (26.0-33.0) Mean Corpuscular Hemoglobin Concent 33.1 g/dL (32.0-36.0) Red Cell Distribution Width 13.9 % (11.5-14.5) Mean Platelet Volume 7.3 fL (7.2-11.1) Neutrophils (%) (Auto) 84.7 % (39.4-72.5) Lymphocytes (%) (Auto) 10.1 % (17.6-49.6) Monocytes (%) (Auto) 4.8 % (4.1-12.4) Eosinophils (%) (Auto) 0.3 % (0.4-6.7) Basophils (%) (Auto) 0.1 % (0.3-1.4) Nucleated RBC Relative Count (auto) 0.1 /100WBC Neutrophils # (Auto) 10.9 K/uL (2.0-7.4) Lymphocytes # (Auto) 1.3 K/uL (1.3-3.6) Monocytes # (Auto) 0.6 K/uL (0.3-1.0) Eosinophils # (Auto) 0.0 K/uL (0.0-0.5) Basophils # (Auto) 0.0 K/uL (0.0-0.1) Nucleated RBC Absolute Count (auto) 0.02 K/uL Sodium Level 144 mmol/L (137-145) Potassium Level 3.4 mmol/L (3.5-5.0) Chloride Level 106 mmol/L (98-107) Carbon Dioxide Level 31 mmol/L (22-31) Blood Urea Nitrogen 9 mg/dl (7-18) Creatinine 0.40 mg/dl (0.52-1.04) Glomerular Filtration Rate Calc > 60.0 Random Glucose 108 mg/dl (75-110) Calcium Level 8.4 mg/dl (8.4-10.2) Magnesium Level 2.0 mg/dl (1.7-2.2) Total Bilirubin 0.2 mg/dl (0.2-1.3) Aspartate Amino Transf (AST/SGOT) 25 U/L (0-35) Alanine Aminotransferase (ALT/SGPT) 29 U/L (0-56) Alkaline Phosphatase 76 U/L (0-126) Total Protein 6.4 g/dl (6.3-8.2) Albumin 3.4 g/dl (3.5-5.0) Salicylates Level < 10 mg/L Salicylate Last Dose Date unk Acetaminophen Level < 10 ug/ml Serum Alcohol < 10 mg/dl Chemistry Test 01/05/18 13:12 01/05/18 14:55 Urine Color Yellow Urine Clarity Slightly-cloudy Urine pH 6.0 pH (4.8-9.5) Urine Specific [place] 1.014 Urine Protein Negative mg/dL (NEGATIVE) Urine Glucose (UA) 50 mg/dL (NEGATIVE) Urine Ketones Negative mg/dL (NEGATIVE) Urine Blood Negative (NEGATIVE) Urine Nitrite Negative (NEGATIVE) Urine Bilirubin Negative (NEGATIVE) Urine Urobilinogen Negative mg/dL (0.2-1.9) Urine Leukocyte Esterase Trace (NEGATIVE) Urine RBC 2 /HPF (0-2/HPF) Urine WBC 23 /HPF (0-5/HPF) Urine Squamous Epithelial Cells Many /LPF (</=FEW) Urine Bacteria Few /HPF (NONE-FEW) Urine Mucus None /HPF (NONE-FEW) Urine HCG, Qualitative Negative (NEGATIVE) Urine Opiates Screen Negative Urine Barbiturates Screen Negative Ur Tricyclic Antidepressants Screen Negative Urine Phencyclidine Screen Negative Urine Amphetamines Screen Negative Urine Benzodiazepines Screen Positive Urine Cocaine Screen Negative Urine Cannabinoids Screen Positive White Blood Count 12.9 k/uL (4.5-11.0) Red Blood Count 4.40 M/uL (4.17-5.56) Hemoglobin 12.7 g/dL (12.0-16.0) Hematocrit 38.4 % (34.0-47.0) Mean Corpuscular Volume 87.2 fL (80.0-96.0) Mean Corpuscular Hemoglobin 28.8 pg (26.0-33.0) Mean Corpuscular Hemoglobin Concent 33.1 g/dL (32.0-36.0) Red Cell Distribution Width 13.9 % (11.5-14.5) Platelet Count 349 K/uL (150-450) Mean Platelet Volume 7.3 fL (7.2-11.1) Neutrophils (%) (Auto) 84.7 % (39.4-72.5) Lymphocytes (%) (Auto) 10.1 % (17.6-49.6) Monocytes (%) (Auto) 4.8 % (4.1-12.4) Eosinophils (%) (Auto) 0.3 % (0.4-6.7) Basophils (%) (Auto) 0.1 % (0.3-1.4) Nucleated RBC Relative Count (auto) 0.1 /100WBC Neutrophils # (Auto) 10.9 K/uL (2.0-7.4) Lymphocytes # (Auto) 1.3 K/uL (1.3-3.6) Monocytes # (Auto) 0.6 K/uL (0.3-1.0) Eosinophils # (Auto) 0.0 K/uL (0.0-0.5) Basophils # (Auto) 0.0 K/uL (0.0-0.1) Nucleated RBC Absolute Count (auto) 0.02 K/uL Glomerular Filtration Rate Calc > 60.0 Calcium Level 8.4 mg/dl (8.4-10.2) Magnesium Level 2.0 mg/dl (1.7-2.2) Total Bilirubin 0.2 mg/dl (0.2-1.3) Aspartate Amino Transf (AST/SGOT) 25 U/L (0-35) Alanine Aminotransferase (ALT/SGPT) 29 U/L (0-56) Alkaline Phosphatase 76 U/L (0-126) Total Protein 6.4 g/dl (6.3-8.2) Albumin 3.4 g/dl (3.5-5.0) Salicylates Level < 10 mg/L Salicylate Last Dose Date unk Acetaminophen Level < 10 ug/ml Serum Alcohol < 10 mg/dl Toxicology Test 01/05/18 13:12 01/05/18 14:55 Urine Opiates Screen Negative Urine Barbiturates Screen Negative Ur Tricyclic Antidepressants Screen Negative Urine Phencyclidine Screen Negative Urine Amphetamines Screen Negative Urine Benzodiazepines Screen Positive Urine Cocaine Screen Negative Urine Cannabinoids Screen Positive Salicylates Level < 10 mg/L Salicylate Last Dose Date unk Acetaminophen Level < 10 ug/ml Serum Alcohol < 10 mg/dl Urinalysis Test 01/05/18 13:12 Urine Color Yellow Urine Clarity Slightly-cloudy Urine pH 6.0 pH (4.8-9.5) Urine Specific [place] 1.014 Urine Protein Negative mg/dL (NEGATIVE) Urine Glucose (UA) 50 mg/dL (NEGATIVE) Urine Ketones Negative mg/dL (NEGATIVE) Urine Blood Negative (NEGATIVE) Urine Nitrite Negative (NEGATIVE) Urine Bilirubin Negative (NEGATIVE) Urine Urobilinogen Negative mg/dL (0.2-1.9) Urine Leukocyte Esterase Trace (NEGATIVE) Urine RBC 2 /HPF (0-2/HPF) Urine WBC 23 /HPF (0-5/HPF) Urine Squamous Epithelial Cells Many /LPF (</=FEW) Urine Bacteria Few /HPF (NONE-FEW) Urine Mucus None /HPF (NONE-FEW) Urine HCG, Qualitative Negative (NEGATIVE) EKG/Imaging Imaging CHEST SINGLE AP Indication: Cough and elevated white blood cell count.. Comparison: None available Findings: Cardiomediastinal silhouette and pulmonary vessels within normal limits. There is no focal infiltrate or lobar consolidation. No pneumothorax or pleural effusion. Mild increased interstitial opacities. No discrete nodule. Upper abdomen is unremarkable. No acute bony abnormality. IMPRESSION: 1. No focal infiltrate. There is mild increased interstitial opacities seen bilaterally. This nonspecific could be due to chronic interstitial changes, mild edema or interstitial pneumonitis. Report Dictated By: Alex Soriano at 01/05/2018 3:47 PM Report E-Signed By: Alex Soriano at 01/05/2018 3:49 PM ED Course/Re-evaluation ED Course Patient was admitted to an exam room, history and physical were obtained. Differential diagnoses were considered. On examination patient is difficult to arouse. Blood sugar was checked here and was persistently low. Patient was given an amp of D50. An IV was started and patient was started on normal saline. On reevaluation patient did have improvement. During that time the patient's [id number] did call. She states that the patient had recently received a prescription for 60 tablets of 0.5 mg Xanax. She states that there is only 6 left in the bottle. At that time and lab work for a behavioral health admission were done. It was my opinion at that time that the patient was a danger to herself an would likely need to be admitted. We did want to get lab work checked to verify if she was cleared to go to [facility] where shouldn't need to admitted to the medical side. Patient was cold and was difficult to get blood. A shouldn't initially refused blood work. After finding out about the Xanax that was missing I did discuss this with the patient. She initially said that she tried taking her medication was going bathroom today and is filled into the toilet. She later said that it is spelled interpersonal asked if I had looked into her purse. I informed her that I did not look into her purse as it was not here. She maintained that she had only taken 3 Xanax yesterday. With the differentiating stories I felt that the patient needs to be detained especially she was threatening to leave AGAINST MEDICAL ADVICE. I discussed this with Dr. Roger Kilpatrick, ER physician, who agreed and we did detain the patient at 1244 this afternoon. She then acquiesced to lab work. Blood work was done, urinalysis was obtained, traction was done. Patient was positive for cannabinoids as well as benzodiazepines. The lab work was unremarkable except patient did have an elevated white count of 12,000. Patient does have a cough and I ordered a chest x-ray. Patient did try to refuse but were able to convince her of the value the chest x-ray. The chest x-ray was negative. I discussed the case with Dr. Carole Palafox, hospitalist, who agreed to accept the patient to the ICU. The reason for the ICU was for frequent blood sugar monitoring and titration of glucose. She requested that I verified that the Xanax was prescribed and also was requested that I speak with Dr. Jalloh. I spoke with Dr. Jalloh who said she would consult with the patient tomorrow. And it was verified that the patient did pickler helper a prescription of 60 tablets of 0.5mg Xanax from [facility]. During the time the patient was here in the emergency room she had blood sugars of 44, 112, 33, 101, 240, 140. Due to the variability of the blood sugars are typically the patient does need to be admitted to the medical unit and this is why I had sp oken with Dr. Carole Palafox. At approximately 6:15 this evening the patient did go to the bathroom. She is wearing her normal clothing. While she was in the bathroom she was found to have her glucometer as well as a couple of syringes. This ranges were empty on evaluation. It was after that that her blood sugar had dropped from 242 140. It is unknown whether she taking any medication, patient denied taking any medication. The patient was admitted to ICU. Decision to Disposition Date: Jan 05, 2018 Decision to Disposition Time: 16:25 Depart Departure Latest Vital Signs Vital Signs Date Time Temp Pulse Resp B/P (MAP) Pulse Ox O2 Delivery O2 Flow Rate FiO2 01/05/18 16:34 97.8 01/05/18 15:20 65 10 99 01/05/18 15:18 94/63 (73) 01/05/18 11:43 Non-Rebreather Impression: Primary Impression: Hypoglycemia Additional Impression: Self-harming behavior Condition: Improved Disposition: Admitted from ER Referrals: CARMELNIA NOWAK DNP, CHILDREN'S CHOIR DIRECTOR-BC (PCP) Problem Qualifiers EFREN PATRICK Jan 05, 2018 12:07
[2018-01-05] MEDS ORDERED: NS(*) 0.9% 1000 ML BAG 1,000 ML IV ONE (12:30)
[2018-01-05] MEDS ORDERED: DEXTROSE 50% 50 ML SYR ONE (14:40)
[2018-01-05 15:09] LABS: PLATELET COUNT, AUTOMATED 349 K/uL (150-450)
--- NOTE | 2018-01-05 15:52 | RADIOLOGY IMAGING REPORT ---
FACILITY: [facility] PATIENT NAME: Dora Anderson : 1980 MR: [id number] V: [id number] EXAM DATE: ORDERING PHYSICIAN: EFREN PATRICK TECHNOLOGIST: [facility] Patient: Dora Anderson : 1980 Visit/Account:[id number] Date of Sevice: 01/05/2018 CHEST SINGLE AP Indication: Cough and elevated white blood cell count.. Comparison: None available Findings: Cardiomediastinal silhouette and pulmonary vessels within normal limits. There is no focal infiltrate or lobar consolidation. No pneumothorax or pleural effusion. Mild increased interstitial opacities. No discrete nodule. Upper abdomen is unremarkable. No acute eduarda ny abnormality. IMPRESSION: 1. No focal infiltrate. There is mild increased interstitial opacities seen bilaterally. This nonspec ific could be due to chronic interstitial changes, mild edema or interstitial pneumonitis. Report Dictated By: Alex Soriano at 01/05/2018 3:47 PM Report E-Signed By: Alex Soriano at 01/05/2018 3:49 PM WSN:[id number]
[2018-01-05] MEDS ORDERED: ALPR-429 PO (16:37)
[2018-01-05 19:24] VITALS: BP 134/92
[2018-01-05] MEDS ORDERED: ACETAMINOPHEN 325 MG TAB PO PRN (20:00)
[2018-01-05] MEDS ORDERED: INFLUENZA VIRUS VAC 0.5ML SYR IM ONLY ONE (20:00)
[2018-01-05] MEDS ORDERED: D5W(*) 1000 ML BAG 1,000 ML IV PRN (20:10)
[2018-01-05] MEDS ORDERED: D5 1/2 NS(*) 1000 ML BAG 1,000 ML IV PRN ×2 (20:15)
[2018-01-05] MEDS: POTASSIUM CHL 10 MEQ TABCR PO SCH (20:49)
--- NOTE | 2018-01-05 20:56 | History & Physical ---
History of Present Illness Chief Complaint Low blood sugar History of Present Illness The patient is a 37 year old female with PMH of type I DM who was found unresponsive by her boyfriend earlier today. EMS was called and the patient was noted to be hypoglycemic. The patient and her boyfriend lost a baby at the beginning of the month. The patient states her baby had many genetic problems and she was told not to have any more children. She has been very upset about this. The patient had been given an RX for Xanax 0.5mg to be taken tid prn. The patient notes she has had depression. Dr. Truong started her on Effexor and she currently takes 150mg of the long acting Effexor daily. There was concern by the patient's boyfriend's mother that the patient filled an RX for Xanax (60 tabs) on 01/03 and there were very few tablets left in the bottle. The patient admits to taking more that prescribed due to the circumstances. She denies trying to harm herself. The patient states she takes Levemir 8u twice daily for her type I DM. She did not eat this am with her insulin. She does not remember the events of the early part of the day well but does remember waking up to a house full of people and being transported to the ER. In the ER, the patient was given multiple doses of D50. She was then given a 500 ml bag of D5. Her blood sugar continued to decrease after each dose of D50 and the D5. Therefore she was recommended for admission for stabilization of her blood glucose and also for evaluation of her depression and possible suicidal ideation. History Problems: (1) Type I diabetes mellitus Status: Chronic (2) depression Status: Chronic (3) Grief at loss of child Status: Acute Home Meds Active Scripts Insulin Detemir 100 UN/ML PEN (Levemir Flextouch) 100 Unit/1 Ml Insuln.pen, 15 UNIT SUBQ QHS, #1 UNIT 3 Refills Prov:COBY TRUONG MD 03/20/15 Insulin Aspart 100 Un/Ml Pen (NOVOLOG FLEXPEN) 100 Unit/1 Ml Insuln.pen, 5-10 UNIT SUBQ TIDCF, #1 VIAL 3 Refills Prov:COBY TRUONG MD 03/20/15 Reported Medications Alprazolam (XANAX) 0.5 Mg Tablet, 1 TAB PO TID, TAB 01/05/18 Venlafaxine Hcl (EFFEXOR XR) 150 Mg Cap.er.24h, 150 MG PO QDAY 08/26/17 Discontinued Scripts Naproxen (NAPROXEN) 500 Mg Tablet, 1 TAB PO BID PRN for PAIN, #20 TAB 0 Refills Prov:CARMELINA NOWAK DNP, MOTOR REBUILDER-BC 08/28/17 Cephalexin (KEFLEX) 500 Mg Capsule, 1 TAB PO QID, #40 CAP 0 Refills Prov:ALEXUS NOWAKMaurice Richards DNP, MOTOR REBUILDER-BC 08/28/17 Allergies: Coded Allergies: No Known Drug Allergies (Unverified , 08/24/17) Patient History: FH: arthritis MOTHER FH: cancer MATERNAL GRANDMOTHER MATERNAL GRANDFATHER FH: diabetes mellitus FATHER FH: hypertension MOTHER Other Social/Family Hx The patient lives with her boyfriend who just lost his job. She lost a 10 month old child at the beginning of December. She has 2 other children ages 2 and 11 with her boyfriend. Hx Smoking: Yes Smoking Status: Current: Every Day Smoker Exposure to Second Hand Smoke?: Yes (1/2 pack per day for 20 years) Caffeine Intake: Coffee Social Drug Use: Former Social Drugs: Marijuana History of IV Drug Use: No Review of Systems All Systems Reviewed/Normal: Yes, Except as Noted Psychiatric: Depression, Anxiety, Other (Grief reaction due to the loss of a child.) Exam Vital Signs Vital Signs Date Time Temp Pulse Resp B/P (MAP) Pulse Ox O2 Delivery O2 Flow Rate FiO2 01/05/18 20:01 60 01/05/18 19:24 22 134/92 (106) 96 Room Air 01/05/18 16:34 97.8 General Appearance: Alert, Awake, No Acute Distress, Other (Tearful.) Neuro: No Gross deficits Eyes: PERRLA, Other (Eyelids swollen.) Cardiovascular: Regular Rate and Rhythm, No Edema Respiratory: No Respiratory Distress, Other (Scattered wheezes.) GI: Abd Soft and Non-Tender, Other (Healing surgical scar, lower abdomen.) Extremities: Warm, Perfused Psych: Other (Tearful, angry at times.) Medical Decision Making Data Points Result Diagram: 01/05/18 1455 01/05/18 1455 Item Value Date Time Calcium Level 8.4 mg/dl 01/05/18 1455 Total Bilirubin 0.2 mg/dl 01/05/18 1455 Aspartate Amino Transf (AST/SGOT) 25 U/L 01/05/18 1455 Alanine Aminotransferase (ALT/SGPT) 29 U/L 01/05/18 1455 Alkaline Phosphatase 76 U/L 01/05/18 1455 Total Protein 6.4 g/dl 01/05/18 1455 Albumin 3.4 g/dl L 01/05/18 1455 Magnesium Level 2.0 mg/dl 01/05/18 1455 Urine Opiates Screen Negative 01/05/18 1312 Urine Barbiturates Screen Negative 01/05/18 1312 Ur Tricyclic Antidepressants Screen Negative 01/05/18 1312 Urine Phencyclidine Screen Negative 01/05/18 1312 Urine Amphetamines Screen Negative 01/05/18 1312 Urine Benzodiazepines Screen Positive 01/05/18 1312 Urine Cocaine Screen Negative 01/05/18 1312 Urine Cannabinoids Screen Positive 01/05/18 1312 Salicylates Level < 10 mg/L 01/05/18 1455 Salicylate Last Dose Date unk 01/05/18 1455 Acetaminophen Level < 10 ug/ml 01/05/18 1455 Serum Alcohol < 10 mg/dl 01/05/18 1455 EKG / Imaging Imaging [place] [facility] [place]IENT NAME: Dora Anderson : 1980 MR: [id number] V: [id number] EXAM DATE: ORDERING PHYSICIAN: EFREN PATRICK TECHNOLOGIST: Location: [facility] Patient: Dora Anderson : 1980 Visit/Account:[id number] Date of Sevice: 01/05/2018 CHEST SINGLE AP Indication: Cough and elevated white blood cell count.. Comparison: None available Findings: Cardiomediastinal silhouette and pulmonary vessels within normal limits. There is no focal infiltrate or lobar consolidation. No pneumothorax or pleural effusion. Mild increased interstitial opacities. No discrete nodule. Upper abdomen is unremarkable. No acute bony abnormality. IMPRESSION: 1. No focal infiltrate. There is mild increased interstitial opacities seen bilaterally. This nonspecific could be due to chronic interstitial changes, mild edema or interstitial pneumonitis. Report Dictated By: Alex Soriano at 01/05/2018 3:47 PM Report E-Signed By: Alex Soriano at 01/05/2018 3:49 PM WSN:[id number] Pre-Admit Course Medical Record Review: No Assessment and Plan Problems: (1) Hypoglycemia Status: Acute Assessment & Plan: The patient takes Levemir 8u bid. She states she took her insulin this am without eating. She has received several amps of D50. Will place on D51/2NS at 75ml/hr and check her glucoses hourly. (2) Type I diabetes mellitus Status: Chronic Assessment & Plan: As above. Will resume Levemir and Novolog per SS when her blood sugars stabilize. (3) depression Status: Chronic Assessment & Plan: On Effexor 150mg daily. She also takes Xanax 0.5mg tid prn. Will have [facility] evaluate in am. (4) Grief at loss of child Status: Acute Assessment & Plan: Will have [facility] evaluate in am. Time Spent on Plan of Care: < 30 min Copies to: COBY TRUONG MD ; Venous Thromboembolism Antithrombotics Is Pt On Any Antithrombotics?: No Prophylaxis Tx Contraindicated Pharmacological Contraindicati: Pt at Low Risk for VTE Exam Sepsis Risk: No Definite Risk HEIDI FAN MD Jan 05, 2018 20:56
[2018-01-05] MEDS ORDERED: VALA500T66 PO (20:57)
[2018-01-05] MEDS ORDERED: MEDR150D IM (20:58)
[2018-01-05] MEDS ORDERED: INSU100I5 SUBQ (20:59)
[2018-01-06] VITALS (9 sets, daily range): BP systolic 104–141; BP diastolic 66–91
[2018-01-06] MEDS: INSULIN HUM LISPRO 100 UN/ML 3 ML VIAL SUBQ PRN ×3 (08:16→16:47)
[2018-01-06] MEDS: POTASSIUM CHL 10 MEQ TABCR PO SCH ×2 (08:16→16:46)
[2018-01-06] MEDS ORDERED: INSULIN DETEMIR 100 U/ML 3 ML PEN SUBQ SCH ×2 (09:00→21:00)
--- NOTE | 2018-01-06 09:29 | Hospitalist Progress Note ---
Subjective Progress Notes Subjective She denies nausea or pain. She is not hungry. She slept fairly well during the night. Her emergency alf has been upheld. Physical Exam Vital Signs Date Time Temp Pulse Resp B/P (MAP) Pulse Ox O2 Delivery O2 Flow Rate FiO2 01/06/18 08:58 65 18 141/88 (105) 96 Room Air 01/06/18 06:00 98.0 Intake and Output 01/06/18 07:00 Intake Total 2269 ml Balance 2269 ml Intake Oral 240 ml IV Total 2029 ml # Voids 1 General Appearance: Alert, Awake, No Acute Distress Cardiovascular: Regular Rate and Rhythm Respiratory: Clear to Auscultation Integumentary: No Jaundice, No Cyanosis Result Diagram: 01/05/18 1455 01/05/18 1455 Assessment and Plan Problems: (1) Hypoglycemia Status: Acute Assessment & Plan: The patient takes Levemir 8u bid. She states she took her insulin this am without eating. She has received several amps of D50 and then started on D51/2NS at 75ml/hr. Her blood sugar has increased this morning to 327. The drip is to be stopped and will continue following glucose closely. We might restart Levemir, but concerned about her taking an excessive amount yesterday, so will wait and follow glucose off the drip. (2) Type I diabetes mellitus Status: Chronic Assessment & Plan: As above. Will resume Levemir and Novolog per SS when her blood sugars stabilize. (3) depression Status: Chronic Assessment & Plan: On Effexor 150mg daily. She also takes Xanax 0.5mg tid prn. Will have BHS evaluate in am. (4) Grief at loss of child Status: Acute Assessment & Plan: Will have [facility]HS evaluate in am. Exam Sepsis Risk: No Definite Risk CHAVA WISE MD Jan 06, 2018 09:29
--- NOTE | 2018-01-06 12:42 | Medical Nutrition Therapy ---
Nutrition Anthropometrics Height (Inches): 68.00 Height (Calculated Centimeters: 172.006338 Weight (Pounds): 136 Weight (Calculated Kilograms): 61.689 BMI: 20.7 Zan Nutrition Score: Adequate Zan Nutrition Risk Score: 22 Dietary Referral Nutrition Risk Factors: Nutrition Risk Comment: Physical Findings Physical Appearance: WNR Skin Appearance Skin Appearance: Edema Edema Location Modifier: Edema Location: Type of Edema: Degree of Edema: Gastrointestinal Symptoms GI Symtoms: Tube Present: Bowel Sounds: Recent Bowel Pattern: Stool Characteristics: Nutritional Diagnosis Nutritional Risk Acuity 2: Blood Glucose > 300mg/dl (admitted with hy poglycemia) Nutritional Risk Acuity 3: Substance abuse Past Medical History: T1DM Nutritional Acuity: 2-Moderate Nutrition Diagnosis: Inconsistent Carb. Intake Nutrition Etiology: Physiological Causes Nutrition Problem/Etiology/Sym: AEB skipping meal after taking insulin reulting in BG of 33 Energy Requirement: 1758 ([place]- [place] Je[place]) Protein Requirement: 61 (1mg/kg) Fluid Requirement: 1850 (30ml/kg) Diet Type: Diabetic Nutrition Intervention: Cont diet as ordered, Encourage intake Additional Diet Restrictions: PROVIDE S TRASaranya Nutrition Monitoring & Eval Nutrition Goals: Eat 75-100% Meal RD Patient Assessment Time: [address] Assessment Type: RD Assessment Patient Nutrition Acuity: 2-Moderate Follow Up Date: Jan 09, 2018 Nutritional Comment: 01/06 Pt admitted for hypoglycemia following insulin injection without eating. BG has ranged 33- 327. Pt is on diabetic diet but no intake reported at this time. Pt is grieving loss of baby with possible SI per hospitalist. Will provide S SHANNON Cheema Jan 06, 2018 12:42
[2018-01-06] MEDS ORDERED: VENLAFAXINE XR 75 MG CAPCR PO ONE (17:15)
[2018-01-07 04:51] VITALS: BP 122/86
[2018-01-07 07:08] VITALS: BP 134/80
--- NOTE | 2018-01-07 08:33 | Antimicrobial Stewardship ---
Antimicrobial Stewardship Empiricly appropriate: Yes Significant PMH: Yes (History of UTI, DM) Support empiric regimen: Yes Comment Pt had e.coli sensitive to cefazolin Approriate Cultures done: Yes (Urine Cx pending) Cultures need repeate: No Renal/Hepatic dosing: Yes Appropriate dose for site: Yes Reviewed for Drug Interaction: Yes Monitored for Toxicities: Yes Clinically stable/improving: Yes IV to PO Opportunity: Yes (Started on PO antibiotics) Determine cumulative duration: 5-7 days Determine standard duration: 5-7 days of Keflex Comment Pt symptomatic, WBC elevated, afebrile, UA contaminated, cultures pending. Will treat for uncomplicated UTI x 5-7 days with Keflex 500 mg po BID DON MILLER Jan 07, 2018 08:33
[2018-01-07] MEDS: POTASSIUM CHL 10 MEQ TABCR PO SCH (08:41)
[2018-01-07] MEDS: INSULIN HUM LISPRO 100 UN/ML 3 ML VIAL SUBQ PRN (08:42)
[2018-01-07] MEDS ORDERED: CEPHALEXIN MONO 500 MG CAP PO SCH (09:00)
--- NOTE | 2018-01-07 09:53 | Hospitalist Depart ---
Discharge Summary Reason for Hosp/Final Diag: (1) Hypoglycemia Status: Acute Hospital Course & Plan: Most likely due to decreased oral intake and possibly overdosing her Levemir. The patient was previously using Levemir 8units SQ BID. She states she took her insulin the AM of admission without eating. She has received several amps of D50 and then started on D51/2NS at 75ml/hr. Her blood sugar increased with this treatment to the 200-300 range. We did restart Levemir at 1/2 of her usual regimen (8 units qHS). She was not eating quite at her normal as of yet. We will plan on monitoring her glucose AC and HS while she is hospitalized. We will continue to follow her glucose levels while on S unit. (2) Type I diabetes mellitus Status: Chronic Hospital Course & Plan: As above. We did resume Levemir 8 units SQ qHS and Novolog per sliding scale. (3) depression Status: Chronic Hospital Course & Plan: She has been on Effexor 150mg daily and Xanax 0.5mg tid prn - both of these have been held/stopped as we will allow psychiatry to decide on regimen. She was evaluated by psychiatry and will be transferred to S unit to continue her management. (4) Grief at loss of child Status: Acute Hospital Course & Plan: She will be evaluated/treated as per psychiatry. (5) UTI (urinary tract infection) Status: Acute Hospital Course & Plan: She did have pyuria with elevation of her WBC count and some mild symptoms. She was placed on oral Keflex 500mg PO BID x5days. Urine culture is pending. Departure Weight (Pounds): 136 Result Diagram: 01/05/18 1455 01/07/18 0833 Item Value Date Time Albumin 3.4 g/dl L 01/05/18 1455 Total Protein 6.4 g/dl 01/05/18 1455 Alkaline Phosphatase 76 U/L 01/05/18 1455 Alanine Aminotransferase (ALT/SGPT) 29 U/L 01/05/18 1455 Aspartate Amino Transf (AST/SGOT) 25 U/L 01/05/18 1455 Total Bilirubin 0.2 mg/dl 01/05/18 1455 Calcium Level 8.4 mg/dl 01/05/18 1455 Random Glucose 108 mg/dl 01/05/18 1455 Glomerular Filtration Rate Calc > 60.0 01/05/18 1455 Creatinine 0.40 mg/dl L 01/05/18 1455 Blood Urea Nitrogen 9 mg/dl 01/05/18 1455 Carbon Dioxide Level 31 mmol/L 01/05/18 1455 Chloride Level 106 mmol/L 01/05/18 1455 Potassium Level 3.4 mmol/L L 01/05/18 1455 Sodium Level 144 mmol/L 01/05/18 1455 Magnesium Level 2.0 mg/dl 01/05/18 1455 Thyroid Stimulating Hormone (TSH) 0.95 uIU/ml 01/05/18 1455 Salicylates Level < 10 mg/L 01/05/18 1455 Acetaminophen Level < 10 ug/ml 01/05/18 1455 Serum Alcohol < 10 mg/dl 01/05/18 1455 Urine Cannabinoids Screen Positive 01/05/18 1312 Urine Cocaine Screen Negative 01/05/18 1312 Urine Benzodiazepines Screen Positive 01/05/18 1312 Urine Phencyclidine Screen Negative 01/05/18 1312 Urine Amphetamines Screen Negative 01/05/18 1312 Ur Tricyclic Antidepressants Screen Negative 01/05/18 1312 Urine Barbiturates Screen Negative 01/05/18 1312 Urine Opiates Screen Negative 01/05/18 1312 Urine Mucus None /HPF 01/07/18 0705 Urine Hyaline Casts Few /LPF 01/07/18 0705 Urine Bacteria Moderate /HPF H 01/07/18 0705 Urine Transitional Epithelial Cells Few /LPF 01/07/18 0705 Urine Squamous Epithelial Cells Many /LPF H 01/07/18 0705 Urine WBC 36 /HPF 01/07/18 0705 Urine RBC 2 /HPF 01/07/18 0705 Urine Leukocyte Esterase Trace H 01/07/18 0705 Urine Urobilinogen 2.0 mg/dL 01/07/18 07 Urine Bilirubin Negative 01/07/18704 Urine Nitrite Negative 01/07/18704 Urine Blood Negative 01/07/18 07 Urine Ketones 20 mg/dL H 01/07/18 07 Urine Glucose (UA) 150 mg/dL H 01/07/18 07 Urine Protein Negative mg/dL 01/07/18 07 Urine Specific [place] 1.016 01/07/18 07 Urine pH 6.0 pH 01/07/18704 Urine Clarity Slightly-cloudy 01/07/18704 Urine Color Yellow 01/07/18704 Imaging PATIENT NAME: Dora Anderson : 1980 MR: [id number] V: [id number] EXAM DATE: ORDERING PHYSICIAN: EFREN PATRICK TECHNOLOGIST: Location: [facility] [place] Patient: Dora Anderson : 1980 Visit/Account:[id number] Date of Sevice: 01/05/2018 CHEST SINGLE AP Indication: Cough and elevated white blood cell count.. Comparison: None available Findings: Cardiomediastinal silhouette and pulmonary vessels within normal limits. There is no focal infiltrate or lobar consolidation. No pneumothorax or pleural effusion. Mild increased interstitial opacities. No discrete nodule. Upper abdomen is unr emarkable. No acute bony abnormality. IMPRESSION: 1. No focal infiltrate. There is mild increased interstitial opacities seen bilaterally. This nonspecific could be due to chronic interstitial changes, mild edema or interstitial pneumonitis. Report Dictated By: Alex Soriano at 01/05/2018 3:47 PM Report E-Signed By: Alex Soriano at 01/05/2018 3:49 PM WSN:[id number] Condition: Improved Discharge: [facility] Follow-Up Labs: Finger Sticks (AC and HS) Discharge Instructions Home Meds Active Scripts Insulin Detemir 100 UN/ML PEN (Levemir Flextouch) 100 Unit/1 Ml Insuln.pen, 8 UNIT SUBQ BID, #1 UNIT 3 Refills Prov:HEIDI FAN MD 01/05/18 Insulin Aspart 100 Un/Ml Pen (NOVOLOG FLEXPEN) 100 Unit/1 Ml Insuln.pen, 5-10 UNIT SUBQ TIDCF, #1 VIAL 3 Refills Prov:COBY TRUONG MD 03/20/15 Reported Medications Medroxyprogesterone Acet 150 Mg (DEPO-PROVERA 150 MG) 150 Mg/1 Ml Disp.syrin, 150 MG IM [id number], DIS.SYR EVERY 3 MONTHS 01/05/18 Valacyclovir Hcl (VALTREX) 500 Mg Tablet, 500 MG PO PRN for cold sores 01/05/18 Alprazolam (XANAX) 0.5 Mg Tablet, 1 TAB PO TID PRN for ANXIETY, TAB 01/05/18 Venlafaxine Hcl (EFFEXOR XR) 150 Mg Cap.er.24h, 150 MG PO QDAY 08/26/17 Discontinued Scripts Naproxen (NAPROXEN) 500 Mg Tablet, 1 TAB PO BID PRN for PAIN, #20 TAB 0 Refills Prov:CARMELINA NOWAK DNP, FNP-BC 08/28/17 Cephalexin (KEFLEX) 500 Mg Capsule, 1 TAB PO QID, #40 CAP 0 Refills Prov:CARMELINA NOWAK DNP, FNP-BC 08/28/17 Diet: Diabetic Activity: As Tolerated Special Instructions: She will be transferred to [facility] Unit. Copies to: CARMELINA NOWAK DNP, FNP-BC ; Venous Thromboembolism Antithrombotics Is Pt On Any Antithrombotics?: No EDUARDO FAN MD Jan 07, 2018 09:53
[2018-01-07] MEDS ORDERED: INSULIN DETEMIR 100 U/ML 3 ML PEN SUBQ SCH (21:00)
[2018-01-08] MEDS ORDERED: TRAZ100T31 PO (14:06)
[2018-01-08] MEDS ORDERED: VENL150C61 PO (14:09)
[2018-01-08] MEDS ORDERED: CEPH-13 PO (14:10)
[2018-01-08] MEDS ORDERED: MULT-1379 PO (14:12)
[2018-01-08] MEDS ORDERED: NIC10R INH (14:13)
[2018-01-08] MEDS ORDERED: NICOTROL INHALER PO (14:14)
[2018-01-08] MEDS ORDERED: INSU100V24 SQ (14:18)
== END 2018-01-07 09:41 ==
LOC: ER 11:51 → INTOOBSV 16:53 → ICU 16:53
PROVIDERS: ADMIT Internal Medicine; ATTEND Internal Medicine
DX: E11.649 Type 2 diabetes mellitus with hypoglycemia without coma (principal); F43.20 Adjustment disorder, unspecified; N30.00 Acute cystitis without hematuria
CPT/HCPCS: 36415; 36416; 71045; 80305; 81001; 81025; 82948; 83735; 84443; 85025; 87077; 87088; 87186; 90471; 90674; 96361; 96365; 96372; 96375; 96376; 99285; G0378; G0480; J1815; J7030; J7042; 80320; 80329; 82040; 82247; 82310; 82374; 82435; 82565; 82947; 84075; 84132; 84155; 84295; 84450; 84460; 84520

== ENCOUNTER → 2018-01-05 | Outpatient (CLI) | payer MEDICAID ==
[2017-02-27 06:11] VITALS: BMI 24.0
[~2018-01-05] MED LIST changes: +ALPR-429 PO; +INSU100V24 SQ; +MEDR150D IM; +MULT-1379 PO; +NIC10R INH; +NICOTROL INHALER PO; +TRAZ100T31 PO; +VALA500T66 PO
== END ==
LOC: AMB 11:22
PROVIDERS: ATTEND Nurse Practitioner
DX: E10.649 Type 1 diabetes mellitus with hypoglycemia without coma (principal); R53.83 Other fatigue
CPT/HCPCS: A0425; A0427

== ENCOUNTER 2018-01-07 10:02 | Inpatient (IN) | payer MEDICAID ==
[2017-02-27 06:11] VITALS: Ht 172.7 cm; Wt 62.1 kg
[~2018-01-07] VITALS: Ht 172.7 cm; Wt 62.1 kg
[~2018-01-07 10:02] MED LIST changes: +ALPR-429 PO; +MEDR150D IM; +VALA500T66 PO
[2018-01-07] MEDS ORDERED: MAG HYD/AL HYD/SIMETH 30ML UDC PO PRN (10:45)
[2018-01-07] MEDS ORDERED: ACETAMINOPHEN 325 MG TAB PO PRN (10:45)
[2018-01-07] MEDS ORDERED: NICOTINE CARTRIDGE 1 EA PO PRN (10:50)
[2018-01-07] MEDS: NICOTINE INH SYSTEM 10 MG/INH INH PRN ×2 (10:50→17:28)
[2018-01-07] MEDS ORDERED: VENLAFAXINE XR 75 MG CAPCR PO SCH (11:00)
[2018-01-07] MEDS ORDERED: VENLAFAXINE REG 75 MG TAB PO ONE (11:20)
[2018-01-07] MEDS: INSULIN HUM LISPRO 100 UN/ML 3 ML VIAL SUBQ PRN ×3 (12:17→20:46)
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
[2018-01-07 14:33] VITALS: BP 89/77
[2018-01-07] MEDS: CEPHALEXIN MONO 500 MG CAP PO SCH (20:45)
[2018-01-07] MEDS: INSULIN DETEMIR 100 U/ML 3 ML PEN SUBQ SCH (20:45)
[2018-01-07] MEDS ORDERED: traZODone HCL 50 MG TAB PO SCH (21:00)
[2018-01-07 22:26] VITALS: BP 103/74
[2018-01-08] MEDS: CEPHALEXIN MONO 500 MG CAP PO SCH (08:13)
[2018-01-08] MEDS: INSULIN DETEMIR 100 U/ML 3 ML PEN SUBQ SCH (08:14)
[2018-01-08] MEDS: INSULIN HUM LISPRO 100 UN/ML 3 ML VIAL SUBQ PRN ×2 (08:16→12:13)
[2018-01-08] MEDS ORDERED: VENLAFAXINE XR 75 MG CAPCR PO SCH (09:00)
[2018-01-08] MEDS ORDERED: MULTIVITAMINS PO SCH (09:00)
[2018-01-08] MEDS: NICOTINE INH SYSTEM 10 MG/INH INH PRN (11:42)
[2018-01-08 13:37] VITALS: BP 102/83
[2018-01-08] MEDS ORDERED: TRAZ100T31 PO (14:06)
[2018-01-08] MEDS ORDERED: VENL150C61 PO (14:09)
[2018-01-08] MEDS ORDERED: CEPH-13 PO (14:10)
[2018-01-08] MEDS ORDERED: MULT-1379 PO (14:12)
[2018-01-08] MEDS ORDERED: NIC10R INH (14:13)
[2018-01-08] MEDS ORDERED: NICOTROL INHALER PO (14:14)
[2018-01-08] MEDS ORDERED: INSU100V24 SQ (14:18)
--- NOTE | 2018-01-08 15:09 | BHS Discharge Summary ---
[facility] Discharge Summary Ivpg-gu-[id number] Encounter Date: Jan 08, 2018 Ayek-[id number] Encounter Time: 09:15 Reason-Hosp/Final Diag (DSM-V): (1) Bereavement Hospital Course & Plan: Patient was admitted to [facility] and maintained on suicide precautions. She was cooperative and highly motivated to participate in therapies. She was frequently tearful, especially when talking about her infant daughter who a month ago. She consistently denied that she had made a suicide attempt, and consistently said that she would never do that, she would be afraid to kill herself, and that she had to live for her family and especially her 2 year old daughter. We held a team meeting with her boyfriend and her [id number] who were all very supportive. The boyfriend also talked about his struggles since their baby . Patient (and her boyfriend as well) will attend out-patient therapy at [facility]. Hillary steward will also see Elena Conte for medication management. Patient's effexor xr was increased to 300 mg q am which was well tolerated. In addition, she was started on trazodone 50-100 mg at HS for sleep. She was much improved and forward- thinking and more hopeful at the time of discharge. (2) Persistent depressive disorder with anxious distress, currently severe Physical Exam Latest Vital Signs Vital Signs 01/08/18 13:37 Temp 98.7 Pulse 82 B/P (MAP) 102/83 (89) Pulse Ox 94 O2 Delivery Room Air Mental Status Exam General Appearance: Well Groomed, Good Eye Contact, Cooperative, Polite, Good Interaction, Tearful (still easily tearful when talking about the of her baby) Speech: Clear, Spontaneous, Normal Rate, Normal Rhythm, Normal Volume, Normal Tone Mood: Dysthmic/Depressed, Euthymic (appropriately sad at times, otherwise euthymic) Affect: Full and Appropriate Thought Process: Organized, Logical, Goal Directed Thought Content: No Suicidal Ideation, No Homicidal Ideation, No Delusions, No Auditory Halllucinations, No Visual Hallucinations, No Thought Broadcasting, No Ideas of Reference, No Obsessions, No Compulsions, No Other Sensorium: Clear Cognition: Alert & Oriented-Person, Alert & Oriented-Place, Alert & Oriented- Time, Bwxtb-Boludnih-Omzpdpwgi Memory: Immediate, Recent, Remote Intelligence: Average Insight Judgment: Fair Departure Condition: Improved Discharge to: Home Discharge Instructions Home Meds Active Scripts Insulin Detemir 100 UN/ML PEN (Levemir Flextouch) 100 Unit/1 Ml Insuln.pen, 8 UNIT SUBQ BID, #1 UNIT 3 Refills Prov:HEIDI FAN MD 01/05/18 Reported Medications Insulin Lispro 100 Un/Ml Vial (HUMALOG 100 U/ML VIAL) 100 Unit/1 Ml Vial, 100 UNIT SQ PRN, VIAL GLUCOSE 150-200 TAKE 1 UNIT 200-250 TAKE 2 UNITS 250-300 TAKE 3 UNITS 300-350 TAKE 4 UNITS OVER 350 TAKE 5 UNITS CONTACT IF OVER 400 CONTACT 01/08/18 [Nicotrol Inhaler] No Conflict Check, 1 EA PO PRN PRN for NICOTINE REPLACEMENT 01/08/18 Nicotine (NICOTROL) 10 Mg/Inh Ctr, 10 MG INH PRN PRN for NICOTINE REPLACEMENT 01/08/18 Multivits,Th W-Fe,Other Min (THERA-M) 1 Each Tablet, 1 EACH PO QDAY 01/08/18 Cephalexin (KEFLEX) 500 Mg Capsule, 500 MG PO BID for 3 Days, #28 CAP 01/08/18 Venlafaxine Hcl (EFFEXOR XR) 150 Mg Cap.er.24h, 300 MG PO QDAY 01/08/18 Trazodone Hcl (TRAZODONE HCL) 100 Mg Tablet, 50-100 MG PO QHS, TAB TAKE ONE HALF (50MG) TO ONE TABLET (100MG) BEFORE YOU GO TO SLEEP 01/08/18 Medroxyprogesterone Acet 150 Mg (DEPO-PROVERA 150 MG) 150 Mg/1 Ml Disp.syrin, 150 MG IM [id number], DIS.SYR EVERY 3 MONTHS 01/05/18 Valacyclovir Hcl (VALTREX) 500 Mg Tablet, 500 MG PO PRN for cold sores 01/05/18 Discontinued Reported Medications Alprazolam (XANAX) 0.5 Mg Tablet, 1 TAB PO TID PRN for ANXIETY, TAB 01/05/18 Discontinued Scripts Insulin Aspart 100 Un/Ml Pen (NOVOLOG FLEXPEN) 100 Unit/1 Ml Insuln.pen, 5-10 UNIT SUBQ TIDCF, #1 VIAL 3 Refills Prov:COBY TRUONG MD 12/13/15 Naproxen (NAPROXEN) 500 Mg Tablet, 1 TAB PO BID PRN for PAIN, #20 TAB 0 Refills Prov:CARMELINA NOWAK DNP, [facility] 08/28/17 Cephalexin (KEFLEX) 500 Mg Capsule, 1 TAB PO QID, #40 CAP 0 Refills Prov:CARMELINA NOWAK DNP, [facility] 08/28/17 Multpiple Antipsychotics Used: No Diet: Diabetic Activity: As Tolerated Special Instructions: Take medications as prescribed. Follow up with outpatient provider for medication management. Follow up with outpatient therapy (family and individual). Consider Anxiety therapy through Counseling services. Call Crisis Line should symptoms return. Pt. received flu shot. Copies to: ; KAYLEEN BECERRA MD Jan 08, 2018 15:09
== END 2018-01-08 17:15 | disposition home or self-care (01) | DRG 881 ==
LOC: BHS 10:02
PROVIDERS: ADMIT Psychiatry & Neurology Psychiatry; ATTEND Psychiatry & Neurology Psychiatry
DX: F43.21 Adjustment disorder with depressed mood (principal); R45.851 Suicidal ideations; F34.1 Dysthymic disorder; E11.9 Type 2 diabetes mellitus without complications; F11.21 Opioid dependence, in remission; F12.90 Cannabis use, unspecified, uncomplicated; Z79.4 Long term (current) use of insulin
CPT/HCPCS: 36416; 82948

== ENCOUNTER 2018-02-09 11:38 | Inpatient (IN) | payer MEDICAID, OTHER ==
[2017-02-27 06:11] VITALS: Ht 172.7 cm; Wt 63.2 kg
[~2018-02-09] VITALS: Ht 172.7 cm; Wt 63.2 kg
[~2018-02-09 11:38] MED LIST changes: +INSU100V24 SQ; +MULT-1379 PO; +NIC10R INH; +NICOTROL INHALER PO; +TRAZ100T31 PO
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
[2018-02-09] MEDS ORDERED: NS(*) 0.9% 1000 ML BAG 1,000 ML IV ONE ×2 (12:02→20:05)
[2018-02-09] MEDS ORDERED: INS HUM LISPRO 100U/ML (ER ONLY) 10 ML VIAL SC ONE (12:05)
[2018-02-09] MEDS ORDERED: INSU HUM REG 100 U/ML(ER ONLY) 10 ML VIAL SUBQ ONE (13:45)
--- NOTE | 2018-02-09 14:05 | RADIOLOGY IMAGING REPORT ---
FACILITY: [facility] - [place] PATIENT NAME: Dora Andesron : 1980 MR: [id number] V: [id number] EXAM DATE: ORDERING PHYSICIAN: EFREN PATRICK TECHNOLOGIST: Location: [facility] [place] Patient: Dora Anderson : 1980 Visit/Account:[id number] Date of Sevice: 02/09/2018 Technique: HIP RIGHT HISTORY: hip pain Comparison studies: None FINDINGS: There is no acute fracture. The alignment of the right femoroacetabular joint is maintained . Mild marginal osteophytosis is noted within the right hip. Soft tissues are unremarkable. IMPRESSION: 1. No acute osseous process. Report Dictated By: Raffaele Lawrence DO at 02/09/2018 1:59 PM Report E-Signed By: Raffaele Lawrence DO at 02/09/2018 2:01 PM WSN:[id number]
[2018-02-09 14:46] LABS: PLATELET COUNT, AUTOMATED 254 K/uL (150-450)
[2018-02-09] MEDS ORDERED: IOPAMIDOL 76% 75 ML INFUS BTL 75 ML ONE (15:34)
--- NOTE | 2018-02-09 16:26 | RADIOLOGY IMAGING REPORT ---
FACILITY: [facility] - [place] PATIENT NAME: Doar Anderson : 1980 MR: [id number] V: [id number] EXAM DATE: ORDERING PHYSICIAN: EFREN PATRICK TECHNOLOGIST: Location: [facility] - [place], [place] Patient: Dora Anderson : 1980 Visit/Account:[id number] Date of Sevice: 02/09/2018 EXAMINATION: CT abdomen and pelvis with contrast COMPARISON: None. HISTORY: Abdomen pain and elevated white blood cell count. PROCEDURE: Multiplanar contrast enhanced CT of the abdomen and pelvis with 75 mL intravenous Isovue 3 70. Per the technologist, the intravenous access flush normally prior to the study but no contrast is evident within the abdomen and pelvis. The emergency department an ordering provider is aware of the presumed contrast extravasation. One of the following dose optimization techniques was utilized in the performance of this exam: Autom ated exposure control; adjustment of the mA and/or kV according to the patient's size; or use of an i terative reconstruction technique. Specific details can be referenced in the facility's radiology C T exam operational policy. FINDINGS: Evaluation of the solid and viscus parenchymal organs and vascular structures is limited wi thout the benefit of IV contrast. Visualized thorax: Negative. Liver: Negative. Gallbladder and biliary system: Gallbladder is poorly visualized likely due to a combination gallblad leonela contraction as well as mild motion artifact. If there is a concern for biliary disease this could be further characterized by ultrasound. Spleen: Negative. Pancreas: Negative. Adrenal glands: Negative. Kidneys and bladder: No renal mass or evidence of an obstructive uropathy. Urinary bladder is disten ded. Vessels: Within normal limits. Bowel and mesentery: Stomach is within normal limits. Small bowel is decompressed with no evidence of obstruction. There is mild stranding throughout the right lower quadrant small bowel mesentery but n o definite evidence of associated bowel wall inflammation. Appendix measures up to 6 mm; no radiopaqu e appendicolith. Small amount of stool in the colon. No definite colonic inflammation. Pelvic organs: Negative. Lymph nodes: No adenopathy. Free air/free fluid: None. Abdominal wall and osseous structures: Tiny fat-containing umbilical hernia. Osseous structures are i ntact. IMPRESSION: 1. Presumed contrast infiltration as discussed above. 2. Right lower quadrant mild nonfocal mesenteric inflammation. No definite small bowel wall or append iceal inflammation is identified although evaluation is limited by the combination of motion and lack of enhancement. Correlation with any evidence of an enteritis is recommended. Although an appendicit is is considered unlikely, continued clinical observation is recommended and if there is a significan t concern for appendicitis consider surgical consultation. 3. Distended urinary bladder. Results were discussed with EFREN PATRICK at 02/09/2018 4:20 PM. Report Dictated By: Abbe Davis MD at 02/09/2018 4:05 PM Report E-Signed By: Abbe Davis MD at 02/09/2018 4:22 PM WSN:[id number]
[2018-02-09] MEDS ORDERED: HEPARIN FLSH (PORT) 500 UN/5ML IVP ONE (20:05)
--- NOTE | 2018-02-09 20:08 | Procedure Note ---
Central Line Procedure Note Indication for Central Line: Dehydration, Inability to gain peripheral access Consent Signed: Yes Central Line Lumen: Triple Central Line Procedure: Chlorhexidine Prep Central Line Position: L Subclavian Anesthesia Used: 1% Lidocaine CC's of Anesthesia: 5 Complications: None Central Line Post Position: Sutured, Confirmed Blood Return, Position Confirmed w/CXR Comment Site prepped Several passes to locate vein. Wire passed easily on first attempt to 30cm. Catheter secured at 18cm. All 3 ports aspirated and flushed with saline easily. Secured with suture x3. Sterile dressing applied. LISA YOUNG MD Feb 09, 2018 20:08
--- NOTE | 2018-02-09 20:21 | RADIOLOGY IMAGING REPORT ---
[facility] PATIENT NAME: Dora Anderson : 1980 MR: [id number] V: [id number] EXAM DATE: ORDERING PHYSICIAN: ABHILASH PASTRANA TECHNOLOGIST: Location: [facility] Patient: Dora Anderson : 1980 Visit/Account:[id number] Date of Sevice: 02/09/2018 Examination: CHEST SINGLE AP Comparison: 01/05/2018 History: Central line placement. Findings: Left subclavian approach central venous catheter with the tip in the region of the mid supe rior vena cava. Cardiac and hilar contour size is normal. Nodular density projecting over the right lower lung is favored to be a nipple shadow. No suspicious consolidation or nodule is identified. No evidence of peribronchial inflammation. No pneumothorax, ed lauren, or effusion. Osseous structures are intact. IMPRESSION: Left subclavian approach central venous catheter. No pneumothorax. Report Dictated By: Abbe Davis MD at 02/09/2018 8:15 PM Report E-Signed By: Abbe Davis MD at 02/09/2018 8:17 PM WSN:[id number]
[2018-02-09 21:06] VITALS: BP 125/77
[2018-02-09] MEDS ORDERED: INFLUENZA VIRUS VAC 0.5ML SYR IM ONLY ONE (21:30)
[2018-02-09 22:00] VITALS: BP 126/76
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
[2018-02-09] MEDS ORDERED: THIAMINE HCL 200 MG/2 ML INJ IVP SCH (22:20)
[2018-02-09] MEDS ORDERED: THIAMINE HCL IVPB SCH (22:30)
[2018-02-09] MEDS ORDERED: NS 0.9% IVPB SCH (22:30)
[2018-02-09] MEDS ORDERED: INSULIN HUM LISPRO 100 UN/ML 3 ML VIAL SUBQ PRN (22:35)
[2018-02-09] MEDS ORDERED: INSULIN GLARGINE 100 U/ML 3 ML PEN SUBQ SCH (22:35)
[2018-02-09] MEDS: NS(*) 0.9% 1000 ML BAG 1,000 ML IV PRN (22:57)
[2018-02-09 23:00] VITALS: BP 134/72
[2018-02-10] VITALS (19 sets, daily range): BP systolic 117–141; BP diastolic 64–85
[2018-02-10 06:10] LABS: PLATELET COUNT, AUTOMATED 237 K/uL (150-450)
[2018-02-10] MEDS: NS(*) 0.9% 1000 ML BAG 1,000 ML IV PRN (06:35)
[2018-02-10] MEDS ORDERED: KCL/D1/2NS 20 MEQ 1000 ML 1,000 ML IV PRN (07:40)
[2018-02-10] MEDS ORDERED: INSULIN HUM REG 100 UN/ML 3 ML 100 UNIT in NS(*) 0.9% 100 ML BAG 99 ML IV SCH (08:00)
[2018-02-10] MEDS: LORazepam 2 MG/ML VIAL IVP PRN ×4 (08:05→16:42)
--- NOTE | 2018-02-10 08:30 | EKG ---
FACILITY: [facility] PATIENT NAME: PING GUNN : [id number] MR: [id number] V: [id number] EXAM DATE: ORDERING PHYSICIAN: CHAVA WISE TECHNOLOGIST: ANN MARIE Santizo Reason : AMS Blood Pressure : / mmHG Vent. Rate : 095 BPM Atrial Rate : 095 BPM P-R Int : 138 ms QRS Dur : 084 ms QT Int : 378 ms P-R-T Axes : 080 025 022 degrees QTc Int : 475 ms Normal sinus rhythm Anterior infarct , age undetermined Diffuse T flattening T inversion anteriorly consistent with ischemia vs normal variant No previous ECGs available Confirmed by CHAVA WISE ([id number]) on 02/10/2018 8:07:21 PM Referred By: FRANDY Confirmed By:CHAVA WISE
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
--- NOTE | 2018-02-10 12:20 | Medical Nutrition Therapy ---
Nutrition Anthropometrics Height (Inches): 68.00 Height (Calculated Centimeters: 172.203968 Weight (Pounds): 139 Weight (Calculated Kilograms): 63.191 BMI: 21.2 Zan Nutrition Score: Adequate Zan Nutrition Risk Score: 19 Dietary Referral Nutrition Risk Factors: Nutrition Risk Comment: Physical Findings Physical Appearance: WNR Skin Appearance Skin Appearance: Edema Edema Location Modifier: Edema Location: Type of Edema: Degree of Edema: Gastrointestinal Symptoms GI Symtoms: Tube Present: Bowel Sounds: Recent Bowel Pattern: Stool Characteristics: Nutritional Diagnosis Nutritional Risk Acuity 2: Pr Appetite > 3d, Blood Glucose > 300mg/dl Nutritional Risk Acuity 3: Alcohol abuse Past Medical History: T1DM, alcohol abuse Nutritional Acuity: 2-Moderate Nutrition Problem/Etiology/Sym: Altered blood glucose values r/t insufficient insulin AEB by hyperglycemia of DKA with admitting BG of 488. Energy Requirement: 1758 (M-Stj) Protein Requirement: 63 (1g/kg) Fluid Requirement: 1890 (30ml/kg) Diet Type: Clear Liquids Nutrition Intervention: Encourage intake, Incr diet as tolerated Nutrition Monitoring & Eval Nutrition Goals: Eat 75-100% Meal, Drink > 1500 cc/day RD Patient Assessment Time: [address] Assessment Type: RD Assessment Patient Nutrition Acuity: 2-Moderate Follow Up Date: Feb 13, 2018 Nutritional Comment: 02/10 Pt admitted for DKA with BG level at 488 and abd pain. Pt had not been taking insulin. BG has declined to 180-200's. Reported that pt has had poor intake in last 5 days due to alcohol intake. K+ at 3.5, Pt on K+ supp. Alb midly depleted at 3. SHANNON CASTRO Feb 10, 2018 12:20
[2018-02-10] MEDS ORDERED: NS(*) 0.9% 250 ML BAG 250 ML IV SCH (13:40)
[2018-02-10] MEDS: ACETAMINOPHEN(*)1000 MG/100 ML 100 ML IVPB PRN ×2 (13:48→21:10)
--- NOTE | 2018-02-10 14:51 | RADIOLOGY IMAGING REPORT ---
FACILITY: [facility] [place] PATIENT NAME: Dora Anderson : 1980 MR: [id number] V: [id number] EXAM DATE: ORDERING PHYSICIAN: CHAVA WISE TECHNOLOGIST: Location: [facility] [place] Patient: Dora Anderson : 1980 Visit/Account:[id number] Date of Sevice: 02/10/[address] scan without contrast COMPARISONS: None ADDITIONAL PERTINENT HISTORY: Altered mental status. TECHNIQUE: Multiple axial images were obtained from the skull base to the vertex without IV contrast . One of the following dose optimization techniques was utilized in the performance of this exam: Aut omated exposure control; adjustment of the mA and/or kV according to the patient's size; or use of an iterative reconstruction technique. Specific details can be referenced in the facility's radiology CT exam operational policy. FINDINGS: Midline shift: Negative Ventricles: Negative Brain parenchyma: Region of low attenuation involving the medial aspects of the anterior portion of the left temporal lobe concerning for an area of developing infarct. No associated hemorrhage. Extra-axial spaces: Negative Intracranial vasculature: Negative Osseous structures: Negative Paranasal sinuses and mastoid air cells: Negative Surrounding soft tissues and orbits: Negative IMPRESSION: 1. Findings concerning for an area of developing infarct involving the anterior medial aspects of th e left temporal lobe. 2. No evidence of underlying hemorrhage. MRI would be of further benefit to further define the abnormalities involving the anterior left tempo ral lobe. Results were discussed with CHAVA WISE at 02/10/2018 2:46 PM. Report Dictated By: Gokul Calderon MD at 02/10/2018 2:34 PM Report E-Signed By: Gokul Calderon MD at 02/10/2018 2:46 PM WSN:[id number]
[2018-02-10] MEDS: KCL (*) 20 MEQ/100 ML PREMIX 100 ML IV SCH ×2 (15:47→18:16)
[2018-02-10] MEDS ORDERED: NS 0.9% IVPB SCH (16:00)
[2018-02-10] MEDS ORDERED: ACYCLOVIR IVPB SCH (16:00)
[2018-02-10] MEDS ORDERED: LORazepam 2 MG/ML VIAL IVP ONE (16:25)
[2018-02-10] MEDS ORDERED: GADOBENATE 529MG/1ML 15ML VIAL IVP ONE (16:26)
--- NOTE | 2018-02-10 18:01 | RADIOLOGY IMAGING REPORT ---
FACILITY: [facility] [place] PATIENT NAME: Dora Anderson : 1980 MR: [id number] V: [id number] EXAM DATE: ORDERING PHYSICIAN: CHAVA WISE TECHNOLOGIST: Location: [facility] [place] Patient: Dora Anderson : 1980 Visit/Account:[id number] Date of Sevice: 02/10/2018 ADDENDUM #1 Addendum: I spoke with Dr. Mccartney regarding this patient on 02/10/2018 at 1800 hours. The patient is in DKA. Herpes encephalitis or other infectious encephalitides are in the differential, although th e imaging appearance is not typical. Report Dictated By: Sharri Alexander MD at 02/10/2018 6:53 PM Report E-Signed By: Sharri Alexander MD at 02/10/2018 6:56 PM ORIGINAL REPORT EXAMINATION: MRI brain without IV contrast MRI brain with IV contrast HISTORY: Altered mental status. COMPARISON: CT head from 02/10/2018. TECHNIQUE: Multi-planar, multi-sequence brain MRI was performed before and after IV gadolinium. CONTRAST: 14 mL of IV MultiHance gadolinium. FINDINGS: The exam is mildly limited by patient motion artifact. Brain volume: Normal. Sagittal midline structures: Normal. Ventricles: Normal. Acute ischemic changes: There are numerous small areas of diffusion restriction with corresponding d ecreased ADC map signal and T2/FLAIR hyperintensity in both cerebral hemispheres, left greater than r ight, with the largest area in the left subinsular region. There is also a punctate right cerebellar lesion. Hemorrhage: There are a few patchy areas of hemosiderin staining in the right posterior parietal lob e and in a sulcus in the left frontoparietal region. Punctate hemosiderin staining in the left latera l frontal lobe and left occipital lobe, corresponding to areas of diffusion restriction. Masses/edema: None. Enhancement: There is no abnormal intracranial enhancement. Christine-white: Negative. White matter: Normal. Vessels: Normal. Extra-axial: There is trace subdural blood posteriorly at the vertex bilaterally. Calvarium/scalp: Negative. Skull base: Negative. Visualized sinuses/orbits: Negative. Visualized upper neck: Negative. IMPRESSION: 1. Multifocal acute infarcts bilaterally, with the largest area in the left subinsular region. A few infarcts have small areas of hemorrhage. Differential considerations include multifocal acute embolic infarcts and vasculitis. Appearance is not typical for PRES or septic emboli, although these are in the differential. 2. Trace acute subdural blood in both parietal regions and trace acute subarachnoid hemorrhage in the left frontoparietal region. 3. No mass effect or midline shift. Report Dictated By: Sharri Alexander MD at 02/10/2018 5:50 PM Report E-Signed By: Sharri Alexander MD at 02/10/2018 5:58 PM WSN:[id number]
[2018-02-10] MEDS ORDERED: VANCOMYCIN(*) 1 GM VIAL 1 GM, VANCOMYCIN HCL 0.750 GM VIAL 0.75 GM in NS(*) 0.9% 250 ML... IVPB ONE (19:00)
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
[2018-02-10] MEDS ORDERED: THIAMINE HCL 200 MG/2 ML INJ IVP SCH (21:00)
[2018-02-11] MEDS ORDERED: VANCOMYCIN(*) 1 GM VIAL 1 GM in NS(*) 0.9% 250 ML BAG 250 ML IVPB SCH (07:00)
== END 2018-02-10 20:43 | disposition short-term general hospital (02) | DRG 637 ==
LOC: ER 12:04 → ICU 18:53
PROVIDERS: ADMIT Family Medicine; ATTEND Family Medicine
PROC: 02HV33Z Insertion of Infusion Device into Superior Vena Cava, Percutaneous Approach (ICD-10-PCS; principal; 2018-02-09)
DX: E10.10 Type 1 diabetes mellitus with ketoacidosis without coma (principal); I60.9 Nontraumatic subarachnoid hemorrhage, unspecified; I63.9 Cerebral infarction, unspecified; I76 Septic arterial embolism; K52.9 Noninfective gastroenteritis and colitis, unspecified; F10.10 Alcohol abuse, uncomplicated; F19.11 Other psychoactive substance abuse, in remission; F41.8 Other specified anxiety disorders; E86.0 Dehydration; F17.210 Nicotine dependence, cigarettes, uncomplicated; W19.XXXA Unspecified fall, initial encounter; Y90.0 Blood alcohol level of less than 20 mg/100 ml; Z79.4 Long term (current) use of insulin
CPT/HCPCS: 36415; 36416; 70450; 70553; 71045; 74177; 80305; 80320; 81001; 82009; 82040; 82150; 82247; 82310; 82374; 82435; 82565; 82803; 82945; 82947; 82948; 83605; 83690; 83930; 84075; 84132; 84155; 84157; 84295; 84450; 84460; 84520; 84703; 85025; 86140; 87040; 87070; 87205; 87529; 87899; 89050; 93005; 96361; 96372; 96374; 99285; A9577; C1758; J0131; J0133; J1642; J1815; J2060; J3370; J3411; J3480; J7030; J7050; Q9967

== ENCOUNTER → 2018-02-10 | Outpatient (CLI) | payer MEDICAID ==
[2017-02-27 06:11] VITALS: BMI 24.0
== END ==
LOC: AMB 20:18
PROVIDERS: ATTEND Nurse Practitioner
DX: I76 Septic arterial embolism (principal); I63.40 Cerebral infarction due to embolism of unspecified cerebral artery; R10.9 Unspecified abdominal pain; F10.239 Alcohol dependence with withdrawal, unspecified; R17 Unspecified jaundice; R50.9 Fever, unspecified
CPT/HCPCS: A0425; A0434